=== PATIENT | male | born 1950 | race Caucasian/White ===

== ENCOUNTER 2022-02-14 20:34 | Emergency (ER) | payer MEDICARE, MEDICAID, SELFPAY ==
--- NOTE | ~2022-02-14 | XR_ITS ---
EXAMINATION: XR CHEST CLINICAL INFORMATION: Chest pain COMPARISON: None TECHNIQUE: Frontal view of the chest was obtained. FINDINGS: No focal pulmonary consolidation, pleural effusion or pneumothorax. Rounded opacity projects over the left lower chest suggestive of a hernia. Left basilar atelectasis is also suspected. This limits assessment of the heart, however normal size is most likely the case. No acute osseous abnormality. XR/XR chest 1V IMPRESSION: Suspect some type of hiatal or diaphragmatic hernia on the left. This would be better characterized with CT of the chest.
--- NOTE | 2022-02-14 20:56 | ED_ITS ---
HPI - Chest Pain General Chief Complaint: Chest Pain Stated Complaint: chest pain Time Seen by Provider: 02/14/22 20:52 Source: patient and EMS Mode of arrival: EMS Limitations: no limitations History of Present Illness HPI narrative: 71 year old male came in by for evaluation of chest pain. Chest pain started about 17:00 today started as intermittent and becoming constant, pain is localized to the lower chest and epigastric area, patient described it as indigestion associated with nausea and vomiting x3, no relieving factor, pain is worsening with food ate [place] food before the pain started. No lower extremity swelling or tenderness. Related Data Previous Rx's Medication Instructions Recorded omeprazole magnesium 20 mg 20 mg PO DAILY #14 tabs 02/14/22 tablet,delayed release (Prilosec OTC) Allergies Allergy/AdvReac Type Severity Reaction Status Date / Time No Known Allergies Allergy Verified 02/14/22 20:53 Review of Systems Review of Systems: All other systems are reviewed and are negative Constitutional: Reports as per HPI and Reports no additional constitutional complaints Eyes: Reports as per HPI and Reports no additional eye complaints Reports system reviewed and no additional complaints, except as documented Cardiovascular: Reports as per HPI and Reports no additional cardiovascular complaints Respiratory: Reports as per HPI and Reports no additional respiratory complaints Gastrointestinal: Reports as per HPI and Reports no additional gastrointestinal complaints Genitourinary: Reports no additional female genitourinary complaints Musculoskeletal: Reports no additional musculoskeletal complaints Skin/Breast: Reports system reviewed and no additional complaints, except as docu Psychiatric: Reports no additional psychiatric complaints Endocrine: Reports no additional endocrine complaints Hematologic/Lymphatic: Reports no additional hematologic/lymphatic complaints Allergic/Immunologic: Reports no additional allergic/immunologic complaints Reports system reviewed and no additional complaints, except as documented and Reports Abnormal speech present [facility] Social History Social History Alcohol intake: former Patient Tobacco Use Status: Current everyday Tobacco user Smoked in Last 30 Days: Yes Use of substances other than those prescribed or required for medical reasons: No Advance Directives: No Advance Directives Information Provided: Yes Physical Exam Vital Signs: Vital Signs: Last Vital Signs Temp 98.6 F 02/14/22 23:58 Pulse 90 02/14/22 23:58 Resp 16 02/14/22 23:58 BP 173/100 H 02/14/22 23:58 Pulse Ox 98 02/14/22 23:58 O2 Del Method 02/14/22 23:58 O2 Flow Rate 2 02/14/22 23:58 BMI result Body Mass Index 25.7 Vital signs have been reviewed as appeared to be correct. Blood pressure normal. Heart rate normal. Respiration rate normal. Temperature normal. Oxy gen saturation normal. Appearance: Alert. Oriented X3. No acute distress. Head: Normal external exam. Normocephalic. Atraumatic. No Justice signs noted. No raccoon eyes noted Eyes: PERRLA. EOMI. Conjunctiva and sclera normal. Eyelids normal. ENT: TM's Normal. Pharynx normal. Uvula midline. Moist mucous membranes. No trismus noted. No drooling noted. No muffled voice noted. Neck: Normal inspection. Neck supple. FROM. No adenopathy. Thyroid Normal. No meningeal signs. No neck mass noted. CVS: Normal heart rate and rhythm. Heart sound normal. No murmurs noted. Pulses normal throughout. Respiratory: No respiratory distress. Painless inspiration. Breath sounds n ormal. No wheezes/rales/rhonchi noted. Chest nontender. No accessory muscle usage noted or decreased air movement noted. Abdomen: Soft, mild tenderness in epigastric area no guarding, no rebound ten derness. Bowel sounds normal in all 4 quadrants. No distention noted. No organomegaly noted. No visible injury noted. Back: No CVA tenderness. Full range of motion noted. Skin: Skin warm and dry. Normal skin color. Normal skin turgor. No rashes/lesions/lacerations noted. Extremities: No lower extremity edema. Extremities exhibit normal range of motion. Extremities nontender. Neuro: Oriented X 3. Cranial nerve exam: II-XII are grossly intact No motor deficit. No sensory deficit. Reflexes normal. Course Course Course Narrative: 71-year-old male came in with atypical chest pain, physical exam more consistent with gastritis, patient had normal EKG and unremarkable troponin x2. Will start the patient on PPI and follow-up with GI as an outpatient. MDM - Chest Pain Medical Records Data Attestation: I reviewed the patient's medical records. Lab Data Attestation: I reviewed the patient's lab results. Result diagrams: 02/14/22 21:15 02/14/22 21:15 Labs: Lab Results 02/14/22 02/14/22 02/14/22 Range/Units 21:15 21:15 21:15 WBC 9.9 (4.8-10.8) X10*3/uL RBC 5.00 (4.60-5.80) X10*6/uL Hgb 13.4 L (14.0-18.0) g/dl Hct 41.8 L (42.0-52.0) % MCV 83.6 (80.0-98.0) fL MCH 26.8 L (27.0-33.0) pg MCHC 32.1 (31.0-36.0) g/dl RDW 14.6 (11.0-16.0) % Plt Count 187 (160-400) X10*3/uL MPV 11.2 (9.4-12.4) fL Immature Gran % (Auto) 0.6 H (0.0-0.4) % Neut % (Auto) 74.4 H (45-73) % Lymph % (Auto) 15.9 L (20-40) % [place] % (Auto) 7.7 (2-11) % Eos % (Auto) 0.9 (0-4) % Baso % (Auto) 0.5 (0-2) % Lymph # (Auto) 1.6 (1.2-4.9) X10*3/uL [place] # (Auto) 0.8 (0.1-1.2) X10*3/uL Eos # (Auto) 0.1 (0.0-0.4) X10*3/uL Baso # (Auto) 0.1 (0.0-0.2) X10*3/uL Abs Immat Gran (auto) 0.06 H (0.00-0.03) X10*3/uL Absolute Neuts (auto) 7.3 (2.0-8.3) x10*3/uL Absolute Nucleated RBC 0.000 (0.0-0.012) X10*3/uL Nucleated RBC % (auto) 0.0 (0.0-0.2) /100WBC Sodium 144 (135-145) mmol/L Potassium 4.6 (3.3-5.1) mmol/L Chloride 113 H (96-108) mmol/L Carbon Dioxide 23 (22-29) mmol/L Anion Gap 13 (12-20) BUN 21 H (9-16) mg/dL Creatinine 1.11 (0.5-1.4) mg/dL Estim Creat Clear Calc TNP Estimated GFR > 60 Random Glucose 117 H (60-115) mg/dL Calcium 8.2 L (8.4-10.2) mg/dL Total Bilirubin 1.6 H (0.0-1.0) mg/dL Direct Bilirubin 0.6 H (0.0-0.5) mg/dL AST 21 (5-37) U/L ALT 21 (0-40) U/L Alkaline Phosphatase 43 (39-117) U/L Troponin I High Sens 4.7 (<3.5-35.0) ng/L B-Natriuretic Peptide (<100) pg/mL Total Protein 7.0 (6.5-8.0) g/dL Albumin 4.0 (3.5-5.0) g/dL Lipase 64 (8-78) U/L Urine Color Urine Appearance Urine pH (5.0-8.0) Ur Specific [place] (1.005-1.025) Urine Protein (NEG-TRACE) MG/DL Urine Glucose (UA) (NEG) MG/DL Urine Ketones (NEG) MG/DL Urine Blood (NEG) Urine Nitrite (NEG) Ur Leukocyte Esterase (NEG) COVID-19 (LISA) (Negative) COVID-19 Clin Com 02/14/22 02/14/22 02/14/22 Range/Units 21:15 21:16 23:24 WBC (4.8-10.8) X10*3/uL RBC (4.60-5.80) X10*6/uL Hgb (14.0-18.0) g/dl Hct (42.0-52.0) % MCV (80.0-98.0) fL MCH (27.0-33.0) pg MCHC (31.0-36.0) g/dl RDW (11.0-16.0) % Plt Count (160-400) X10*3/uL MPV (9.4-12.4) fL Immature Gran % (Auto) (0.0-0.4) % Neut % (Auto) (45-73) % Lymph % (Auto) (20-40) % [place] % (Auto) (2-11) % Eos % (Auto) (0-4) % Baso % (Auto) (0-2) % Lymph # (Auto) (1.2-4.9) X10*3/uL [place] # (Auto) (0.1-1.2) X10*3/uL Eos # (Auto) (0.0-0.4) X10*3/uL Baso # (Auto) (0.0-0.2) X10*3/uL Abs Immat Gran (auto) (0.00-0.03) X10*3/uL Absolute Neuts (auto) (2.0-8.3) x10*3/uL Absolute Nucleated RBC (0.0-0.012) X10*3/uL Nucleated RBC % (auto) (0.0-0.2) /100WBC Sodium (135-145) mmol/L Potassium (3.3-5.1) mmol/L Chloride (96-108) mmol/L Carbon Dioxide (22-29) mmol/L Anion Gap (12-20) BUN (9-16) mg/dL Creatinine (0.5-1.4) mg/dL Estim Creat Clear Calc Estimated GFR Random Glucose (60-115) mg/dL Calcium (8.4-10.2) mg/dL Total Bilirubin (0.0-1.0) mg/dL Direct Bilirubin (0.0-0.5) mg/dL AST (5-37) U/L ALT (0-40) U/L Alkaline Phosphatase (39-117) U/L Troponin I High Sens 5.4 (<3.5-35.0) ng/L B-Natriuretic Peptide 24 (<100) pg/mL Total Protein (6.5-8.0) g/dL Albumin (3.5-5.0) g/dL Lipase (8-78) U/L Urine Color Urine Appearance Urine pH (5.0-8.0) Ur Specific [place] (1.005-1.025) Urine Protein (NEG-TRACE) MG/DL Urine Glucose (UA) (NEG) MG/DL Urine Ketones (NEG) MG/DL Urine Blood (NEG) Urine Nitrite (NEG) Ur Leukocyte Esterase (NEG) COVID-19 (LISA) Negative (Negative) COVID-19 Clin Com See Note 02/15/22 Range/Units 00:03 WBC (4.8-10.8) X10*3/uL RBC (4.60-5.80) X10*6/uL Hgb (14.0-18.0) g/dl Hct (42.0-52.0) % MCV (80.0-98.0) fL MCH (27.0-33.0) pg MCHC (31.0-36.0) g/dl RDW (11.0-16.0) % Plt Count (160-400) X10*3/uL MPV (9.4-12.4) fL Immature Gran % (Auto) (0.0-0.4) % Neut % (Auto) (45-73) % Lymph % (Auto) (20-40) % [place] % (Auto) (2-11) % Eos % (Auto) (0-4) % Baso % (Auto) (0-2) % Lymph # (Auto) (1.2-4.9) X10*3/uL [place] # (Auto) (0.1-1.2) X10*3/uL Eos # (Auto) (0.0-0.4) X10*3/uL Baso # (Auto) (0.0-0.2) X10*3/uL Abs Immat Gran (auto) (0.00-0.03) X10*3/uL Absolute Neuts (auto) (2.0-8.3) x10*3/uL Absolute Nucleated RBC (0.0-0.012) X10*3/uL Nucleated RBC % (auto) (0.0-0.2) /100WBC Sodium (135-145) mmol/L Potassium (3.3-5.1) mmol/L Chloride (96-108) mmol/L Carbon Dioxide (22-29) mmol/L Anion Gap (12-20) BUN (9-16) mg/dL Creatinine (0.5-1.4) mg/dL Estim Creat Clear Calc Estimated GFR Random Glucose (60-115) mg/dL Calcium (8.4-10.2) mg/dL Total Bilirubin (0.0-1.0) mg/dL Direct Bilirubin (0.0-0.5) mg/dL AST (5-37) U/L ALT (0-40) U/L Alkaline Phosphatase (39-117) U/L Troponin I High Sens (<3.5-35.0) ng/L B-Natriuretic Peptide (<100) pg/mL Total Protein (6.5-8.0) g/dL Albumin (3.5-5.0) g/dL Lipase (8-78) U/L Urine Color YELLOW Urine Appearance CLEAR Urine pH 8.0 (5.0-8.0) Ur Specific [place] 1.015 (1.005-1.025) Urine Protein NEG (NEG-TRACE) MG/DL Urine Glucose (UA) NEG (NEG) MG/DL Urine Ketones NEG (NEG) MG/DL Urine Blood NEG (NEG) Urine Nitrite NEG (NEG) Ur Leukocyte Esterase NEG (NEG) COVID-19 (LISA) (Negative) COVID-19 Clin Com Imaging Data Chest x-ray: Attestation: I personally reviewed and interpreted this imaging study as follows: Radiologist's impression: Suspect some type of hiatal or diaphragmatic hernia on the left. This would be better characterized with CT of the chest. ? ECG Data ECG #1: Attestation: I personally reviewed and interpreted this ECG as follows: Interpretation: Sinus rhythm at 98 beats per minutes, first-degree AV block, otherwise unremarkable intervals, left axis deviation, RBBB . Discharge Plan Discharge Clinical Impression: Atypical chest pain, Gastritis Patient Disposition: Home, Self-Care Instructions: Gastritis (ED) Prescriptions: New omeprazole magnesium [Prilosec OTC] 20 mg tablet,delayed release (DR/EC) 20 mg PO DAILY Qty: 14 0RF Referrals: Earle Modi MD [Physician] - Physician,None [Primary Care Provider] -
[2022-02-14 21:22] LABS: Basophils Absolute Auto 0.1 X10*3/uL (0.0-0.2); Basophils Percent Auto 0.5 % (0-2); Eosinophils Absolute Auto 0.1 X10*3/uL (0.0-0.4); Eosinophils Percent Auto 0.9 % (0-4); Hematocrit 41.8 % (42.0-52.0); Hemoglobin 13.4 g/dl (14.0-18.0); Imm Gran Abs Auto 0.06 X10*3/uL (0.00-0.03); Imm Gran Pct Auto 0.6 % (0.0-0.4); Lymphocytes Absolute Auto 1.6 X10*3/uL (1.2-4.9); Lymphocytes Percent Auto 15.9 % (20-40); MANUAL DIFF FLAG NO; Mean Corpuscular HGB Conc 32.1 g/dl (31.0-36.0); Mean Corpuscular Hemoglobin 26.8 pg (27.0-33.0); Mean Corpuscular Volume 83.6 fL (80.0-98.0); Mean Platelet Volume 11.2 fL (9.4-12.4); Monocytes Absolute Auto 0.8 X10*3/uL (0.1-1.2); Monocytes Percent Auto 7.7 % (2-11); Neutrophils Absolute Auto 7.3 x10*3/uL (2.0-8.3); Neutrophils Percent Auto 74.4 % (45-73); Platelet Count 187 X10*3/uL (160-400); Red Cell Distribution Width 14.6 % (11.0-16.0); White Blood Count 9.9 X10*3/uL (4.8-10.8)
[2022-02-14 21:40] LABS: COVID-19 Test Negative (Negative)
[2022-02-14 21:42] LABS: Alanine Aminotransferase 21 U/L (0-40); Alkaline Phosphatase 43 U/L (39-117); Anion Gap 13 (12-20); Aspartate Amino Transferase 21 U/L (5-37); Bilirubin Direct 0.6 mg/dL (0.0-0.5); Bilirubin Total 1.6 mg/dL (0.0-1.0); Blood Urea Nitrogen 21 mg/dL (9-16); Calcium 8.2 mg/dL (8.4-10.2); Carbon Dioxide 23 mmol/L (22-29); Chloride 113 mmol/L (96-108); Estimated Glomerular Filt Rate > 60; Glucose Random 117 mg/dL (60-115); Lipase 64 U/L (8-78); Potassium 4.6 mmol/L (3.3-5.1); Sodium 144 mmol/L (135-145)
[2022-02-14 21:44] LABS: B Type Natriuretic Peptide 24 pg/mL (<100); Troponin-I High Sensitivity 4.7 ng/L (<3.5-35.0)
[2022-02-14 22:10] VITALS: PULSE 93; RESP 39; TEMP 36.6; O2SAT 93; BMI 25.7
[2022-02-14 22:16] VITALS: BP 148/100; PULSE 93; RESP 36; TEMP 37.1; O2SAT 94
[2022-02-14] MEDS: 0.9 % Sodium Chloride 1,000 ML 999 ML IV (23:00)
[2022-02-14] MEDS: ondansetron HCL 4 MG/2 ML VIAL IVPUSH (23:01)
[2022-02-14] MEDS: Magnesium Hydrox/Alum Hydrox 30 ML ORAL.SUSP PO (23:01)
[2022-02-14] MEDS: Famotidine/PF 20 MG/2 ML VIAL IVPUSH (23:01)
--- NOTE | 2022-02-14 23:15 | PC.NURSE ---
administered meds to pt per MAR
[2022-02-14 23:49] LABS: Troponin-I High Sensitivity 5.4 ng/L (<3.5-35.0)
[2022-02-14 23:58] VITALS: BP 173/100; PULSE 90; RESP 16; TEMP 37; O2SAT 98
--- NOTE | 2022-02-15 00:04 | ECG_ITS ---
Test Reason : chest pain Blood Pressure : / mmHG Vent. Rate : 085 BPM Atrial Rate : 085 BPM P-R Int : 262 ms QRS Dur : 148 ms QT Int : 404 ms P-R-T Axes : 052 -88 -02 degrees QTc Int : 480 ms Sinus rhythm with 1st degree A-V block Possible Left atrial enlargement Right bundle branch block Left anterior fascicular block Bifascicular block Abnormal ECG No previous ECGs available Referred By: Brittany Alva Electronically Signed By:Dar Rodriguez
[2022-02-15 00:10] LABS: Appearance Urine CLEAR; Color Urine YELLOW; Glucose Urine UA NEG (NEG); Leukocyte Esterase Urine NEG (NEG); Nitrite Urine NEG (NEG); Specific Gravity - Urine 1.015 (1.005-1.025); Urine Blood NEG (NEG); Urine Ketones NEG (NEG); Urine Protein NEG (NEG-TRACE)
== END 2022-02-15 00:34 | disposition home or self-care (01) ==
PROVIDERS: Emergency Provider Emergency Medicine
DX: R07.89 Other chest pain (principal); K29.70 Gastritis, unspecified, without bleeding; Z20.822 Contact with and (suspected) exposure to COVID-19; R10.13 Epigastric pain; F17.200 Nicotine dependence, unspecified, uncomplicated
CPT/HCPCS: 36415; 71045; 80048; 80076; 81003; 83690; 83880; 84484; 85025; 87635; 93005; 96361; 96374; 96375; 99284; 99285; J2405

== ENCOUNTER 2023-01-02 11:09 | Outpatient (REF) | payer MEDICARE, MEDICAID, SELFPAY ==
--- NOTE | ~2023-01-02 | CT_ITS ---
EXAMINATION: CT CHEST AND ABDOMEN WITHOUT CONTRAST CLINICAL INFORMATION: Gastrointestinal hemorrhage. COMPARISON: Chest x-ray 02/14/2022. TECHNIQUE: Multidetector volumetric CT imaging of the chest and abdomen was performed without contrast. Axial MIP volume rendering provided. Sagittal and coronal reformatted images were obtained. DLP: 525 mGy-cm. FINDINGS: CHEST: LUNGS: Mild centrilobular emphysema. No consolidation. Scarring in the left upper lobe. Mild left basilar atelectasis related to the hiatal hernia. MEDIASTINUM: No adenopathy. No pericardial effusion. Ascending aortic aneurysm measuring 4.4 x 4.3 cm. Large hiatal hernia containing almost all of the stomach. CORONARY ARTERIES: No demonstrable calcium. PLEURA: There is no pleural effusion. No pleural mass or thickening. AXILLA: No lymphadenopathy. ABDOMEN AND PELVIS: LIVER, GALLBLADDER, AND BILIARY TREE: No hepatic mass. No biliary ductal dilatation. No cholelithiasis. PANCREAS: No discrete pancreatic mass. No ductal dilatation. SPLEEN: Normal. ADRENAL GLANDS: No adrenal mass. KIDNEYS AND URETERS: Simple cyst in the upper pole right kidney. No follow-up imaging is recommended. No nephrolithiasis or hydronephrosis GASTROINTESTINAL TRACT: Visualized small and large bowel are normal in caliber. No discrete bowel mass is seen. Mild right-sided diverticulosis without evidence of diverticulitis. Large hiatal hernia. ABDOMINAL WALL: No significant hernia is appreciated. LYMPH NODES: No adenopathy. VASCULAR: No aortic aneurysm. OSSEOUS STRUCTURES: Degenerative changes in the spine. No suspicious osseous lesions. CT/CT abdomen wo IV con IMPRESSION: 4.4 cm ascending aortic aneurysm. Large hiatal hernia. Mild colonic diverticulosis.
--- NOTE | ~2023-01-02 | CT_ITS ---
EXAMINATION: CT CHEST AND ABDOMEN WITHOUT CONTRAST CLINICAL INFORMATION: Gastrointestinal hemorrhage. COMPARISON: Chest x-ray 02/14/2022. TECHNIQUE: Multidetector volumetric CT imaging of the chest and abdomen was performed without contrast. Axial MIP volume rendering provided. Sagittal and coronal reformatted images were obtained. DLP: 525 mGy-cm. FINDINGS: CHEST: LUNGS: Mild centrilobular emphysema. No consolidation. Scarring in the left upper lobe. Mild left basilar atelectasis related to the hiatal hernia. MEDIASTINUM: No adenopathy. No pericardial effusion. Ascending aortic aneurysm measuring 4.4 x 4.3 cm. Large hiatal hernia containing almost all of the stomach. CORONARY ARTERIES: No demonstrable calcium. PLEURA: There is no pleural effusion. No pleural mass or thickening. AXILLA: No lymphadenopathy. ABDOMEN AND PELVIS: LIVER, GALLBLADDER, AND BILIARY TREE: No hepatic mass. No biliary ductal dilatation. No cholelithiasis. PANCREAS: No discrete pancreatic mass. No ductal dilatation. SPLEEN: Normal. ADRENAL GLANDS: No adrenal mass. KIDNEYS AND URETERS: Simple cyst in the upper pole right kidney. No follow-up imaging is recommended. No nephrolithiasis or hydronephrosis GASTROINTESTINAL TRACT: Visualized small and large bowel are normal in caliber. No discrete bowel mass is seen. Mild right-sided diverticulosis without evidence of diverticulitis. Large hiatal hernia. ABDOMINAL WALL: No significant hernia is appreciated. LYMPH NODES: No adenopathy. VASCULAR: No aortic aneurysm. OSSEOUS STRUCTURES: Degenerative changes in the spine. No suspicious osseous lesions. CT/CT chest wo IV con IMPRESSION: 4.4 cm ascending aortic aneurysm. Large hiatal hernia. Mild colonic diverticulosis.
== END 2023-01-02 11:10 | disposition home or self-care (01) ==
LOC: HO.CT 11:09
PROVIDERS: PCP Registered Nurse; Visit Provider Registered Nurse
DX: K92.2 Gastrointestinal hemorrhage, unspecified (principal)
CPT/HCPCS: 71250; 74150

== ENCOUNTER → 2023-01-19 13:50 | Outpatient (BNVA) | payer MEDICARE, MEDICAID, SELFPAY | PROVIDERS: PCP Registered Nurse; Visit Provider Internal Medicine | DX: Z12.11 Encounter for screening for malignant neoplasm of colon (principal); K44.9 Diaphragmatic hernia without obstruction or gangrene; K92.0 Hematemesis; R07.9 Chest pain, unspecified; I71.9 Aortic aneurysm of unspecified site, without rupture | CPT/HCPCS: 99202 ==

== ENCOUNTER 2023-01-26 01:52 | Emergency (ER) | payer MEDICARE, MEDICAID, SELFPAY ==
[2023-01-26 02:07] VITALS: BP 133/85; PULSE 85; RESP 27; TEMP 36.6; O2SAT 91; BMI 24.5
--- NOTE | 2023-01-26 02:28 | PC.NURSE ---
pt arrived via ems for vomiting blood since 4 pm, pt also reported mid=sternal chest pain and abd pain, medicated with zofran ivp pre-hospital
--- NOTE | 2023-01-26 02:33 | ED.GENADULT ---
HPI - General Adult General Chief complaint: General Medical Stated complaint: Nausea/Vomiting blood Time Seen by Provider: 01/26/23 02:18 Source: patient Mode of arrival: ambulatory Limitations: no limitations History of Present Illness HPI narrative: 72-year-old male PMH of ETOH use disorder in remission for 20 years, HTN, COPD, AAA, hiatal hernia repair been having chest pain and bloody emesis patient was seen and evaluated by side sawyer patient will be scheduled for upper endoscopy by side sawyer, came in today for epigastric pain and he started to vomit since 16:00 patient noticed that he has also vomiting bright red blood, last bowel movement was yesterday, passing flatus. Related Data Home Medications Medication Instructions Recorded Confirmed cetirizine 10 mg tablet 10 mg PO QAM 01/19/23 lisinopril 10 mg tablet 10 mg PO DAILY 01/19/23 pantoprazole 40 mg tablet,delayed 40 mg PO DAILY 01/19/23 release rosuvastatin 20 mg tablet 20 mg PO BEDTIME 01/19/23 salmeterol 50 mcg/dose blister 1 inh inhalation Q12H 01/19/23 powder for inhalation (Serevent Diskus) umeclidinium 62.5 mcg/actuation 1 inh inhalation DAILY 01/19/23 blister powder for inhalation (Incruse Ellipta) Previous Rx's Medication Instructions Recorded peg 3350-electrolytes 236 240 ml PO Q10M colonoscopy #4,000 01/19/23 gram-22.74 gram-6.74 gram-5.86 mL gram solution (Golytely) Allergies Allergy/AdvReac Type Severity Reaction Status Date / Time No Known Allergies Allergy Verified 01/19/23 13:57 Review of Systems Review of Systems: All other systems are reviewed and are negative Constitutional: Reports as per HPI and Reports no additional constitutional complaints Eyes: Reports as per HPI and Reports no additional eye complaints Reports system reviewed and no additional complaints, except as documented Cardiovascular: Reports as per HPI and Reports no additional cardiovascular complaints Respiratory: Reports as per HPI and Reports no additional respiratory complaints Gastrointestinal: Reports as per HPI and Reports no additional gastrointestinal complaints Genitourinary: Reports no additional female genitourinary complaints Musculoskeletal: Reports no additional musculoskeletal complaints Skin/Breast: Reports system reviewed and no additional complaints, except as docu Psychiatric: Reports no additional psychiatric complaints Endocrine: Reports no additional endocrine complaints Hematologic/Lymphatic: Reports no additional hematologic/lymphatic complaints Allergic/Immunologic: Reports no additional allergic/immunologic complaints Reports system reviewed and no additional complaints, except as documented and Reports Abnormal speech present [facility] Past Medical History Surgical History Hx of hernia repair Social History Social History Alcohol intake: former Patient Tobacco Use Status: Current everyday Tobacco user Smoked in Last 30 Days: No Use of substances other than those prescribed or required for medical reasons: No Advance Directives: No Advance Directives Information Provided: No Physical Exam ED Vital Signs: Vital Signs - 24 hr 01/26/23 02:07 01/26/23 03:52 01/26/23 05:00 Temperature 97.8 F 97.9 F Pulse Rate 85 114 H 96 Respiratory Rate 27 H 16 16 Blood Pressure 133/85 118/70 94/63 Pulse Oximetry 91 L 95 92 Oxygen Delivery Method Room Air Room Air Room Air BMI result Body Mass Index 24.5 Vital signs have been reviewed as appeared to be correct. Blood pressure normal. Heart rate normal. Respiration rate normal. Temperature normal. Oxygen saturation normal. Appearance: Alert. Oriented X3. No acute distress. Head: Normal external exam. Normocephalic. Atraumatic. No Justice signs noted. No raccoon eyes noted Eyes: PERRLA. EOMI. Conjunctiva and sclera normal. Eyelids normal. ENT: TM's Normal. Pharynx normal. Uvula midline. Moist mucous membranes. No trismus noted. No drooling noted. No muffled voice noted. Neck: Normal inspection. Neck supple. FROM. No adenopathy. Thyroid Normal. No meningeal signs. No neck mass noted. CVS: Normal heart rate and rhythm. Heart sound normal. No murmurs noted. Pulses normal throughout. Respiratory: No respiratory distress. Painless inspiration. Breath sounds normal. No wheezes/rales/rhonchi noted. Chest nontender. No accessory muscle usage noted or decreased air movement noted. Abdomen: Soft, mild epigastric tenderness. Bowel sounds normal in all 4 quadrants. No distention noted. No organomegaly noted. No visible injury noted. Back: No CVA tenderness. Full range of motion noted. Skin: Skin warm and dry. Normal skin color. Normal skin turgor. No rashes/lesions/lacerations noted. Extremities: No lower extremity edema. Extremities exhibit normal range of motion. Extremities nontender. Neuro: Oriented X 3. Cranial nerve exam: II-XII are grossly intact No motor deficit. No sensory deficit. Reflexes normal. Course Course Course Narrative: A 72-year-old male came in with vomiting with coffee-ground emesis with abdominal pain, CT is concern of gastric outlet obstruction the case discussed with Dr. Newman who recommended to transfer the patient to another hospital, [facility] is closed for transfer, patient was accepted by [facility] to [facility] ED the case discussed with (surgeon) who accepted the transfer, will arrange for the transfer. Medications Administered Discontinued Medications Generic Name Dose Route Start Last Admin Trade Name Freq PRN Reason Stop Dose Admin Sodium Chloride 1,000 mls @ 999 mls/hr 01/26/23 02:19 01/26/23 04:20 Ns IV 01/26/23 03:19 Infused .Q1H1M ONE Infusion Ondansetron HCl 4 mg 01/26/23 02:18 01/26/23 03:18 Ondansetron Hcl 4 Mg/2 Ml Vial IVPUSH 01/26/23 02:19 4 mg ONCE ONE Administration Pantoprazole Sodium 40 mg 01/26/23 02:18 01/26/23 03:18 Pantoprazole Sodium 40 Mg/10 Ml Vial IVPUSH 01/26/23 02:19 40 mg ONCE ONE Administration Medical Decision Making Differential Diagnosis Differential Diagnoses: The differential diagnosis associated with the presentation includes (Hematemesis, stomach outlet obstruction, gastritis, esophagitis, severe anemia, electrolyte abnormalities.) Admission/Observation Consideration of admission/observation: Escalation of care including admission/observation considered Consult Healthcare Provider Management of the patient was discussed with: Psychiatric Arnp (Dr. Newman) Lab Data MDM Lab Attestation statement: I reviewed the patient's lab results. 01/26/23 02:30 01/26/23 02:30 Labs: Lab Results 01/26/23 01/26/23 01/26/23 Range/Units 02:30 02:30 02:30 WBC 24.4 H (4.8-10.8) X10*3/uL RBC 5.91 H (4.60-5.80) X10*6/uL Hgb 15.6 (14.0-18.0) g/dl Hct 47.7 (42.0-52.0) % MCV 80.7 (80.0-98.0) fL MCH 26.4 L (27.0-33.0) pg MCHC 32.7 (31.0-36.0) g/dl RDW 14.6 (11.0-16.0) % Plt Count 246 D (160-400) X10*3/uL MPV 11.9 (9.4-12.4) fL Immature Gran % (Auto) 0.5 H (0.0-0.4) % Neut % (Auto) 86.8 H (45-73) % Lymph % (Auto) 5.7 L (20-40) % [place] % (Auto) 6.9 (2-11) % Eos % (Auto) 0.0 (0-4) % Baso % (Auto) 0.1 (0-2) % Lymph # (Auto) 1.4 (1.2-4.9) X10*3/uL [place] # (Auto) 1.7 H (0.1-1.2) X10*3/uL Eos # (Auto) 0.0 (0.0-0.4) X10*3/uL Baso # (Auto) 0.0 (0.0-0.2) X10*3/uL Abs Immat Gran (auto) 0.11 H (0.00-0.03) X10*3/uL Absolute Neuts (auto) 21.2 H (2.0-8.3) x10*3/uL Absolute Nucleated RBC 0.000 (0.0-0.012) X10*3/uL Nucleated RBC % (auto) 0.0 (0.0-0.2) /100WBC Smear Tech's Comments VERIFIED Sodium 146 H (135-145) mmol/L Potassium 3.5 D (3.3-5.1) mmol/L Chloride 101 (96-108) mmol/L Carbon Dioxide 26 (22-29) mmol/L Anion Gap 23 H (12-20) BUN 41 H (9-16) mg/dL Creatinine 1.87 H (0.5-1.4) mg/dL Estim Creat Clear Calc 38.0 Estimated GFR 36 Random Glucose 211 H (60-115) mg/dL Calcium 10.2 D (8.4-10.2) mg/dL Total Bilirubin 3.8 H (0.0-1.0) mg/dL Direct Bilirubin 0.3 (0.0-0.5) mg/dL AST 20 (5-37) U/L ALT 23 (0-40) U/L Alkaline Phosphatase 45 (39-117) U/L Troponin I High Sens 52.4 H (<3.5-35.0) ng/L Total Protein 8.3 H (6.5-8.0) g/dL Albumin 4.6 (3.5-5.0) g/dL Lipase 115 H (8-78) U/L Blood Type 01/26/23 Range/Units 04:26 WBC (4.8-10.8) X10*3/uL RBC (4.60-5.80) X10*6/uL Hgb (14.0-18.0) g/dl Hct (42.0-52.0) % MCV (80.0-98.0) fL MCH (27.0-33.0) pg MCHC (31.0-36.0) g/dl RDW (11.0-16.0) % Plt Count (160-400) X10*3/uL MPV (9.4-12.4) fL Immature Gran % (Auto) (0.0-0.4) % Neut % (Auto) (45-73) % Lymph % (Auto) (20-40) % [place] % (Auto) (2-11) % Eos % (Auto) (0-4) % Baso % (Auto) (0-2) % Lymph # (Auto) (1.2-4.9) X10*3/uL [place] # (Auto) (0.1-1.2) X10*3/uL Eos # (Auto) (0.0-0.4) X10*3/uL Baso # (Auto) (0.0-0.2) X10*3/uL Abs Immat Gran (auto) (0.00-0.03) X10*3/uL Absolute Neuts (auto) (2.0-8.3) x10*3/uL Absolute Nucleated RBC (0.0-0.012) X10*3/uL Nucleated RBC % (auto) (0.0-0.2) /100WBC Smear Tech's Comments Sodium (135-145) mmol/L Potassium (3.3-5.1) mmol/L Chloride (96-108) mmol/L Carbon Dioxide (22-29) mmol/L Anion Gap (12-20) BUN (9-16) mg/dL Creatinine (0.5-1.4) mg/dL Estim Creat Clear Calc Estimated GFR Random Glucose (60-115) mg/dL Calcium (8.4-10.2) mg/dL Total Bilirubin (0.0-1.0) mg/dL Direct Bilirubin (0.0-0.5) mg/dL AST (5-37) U/L ALT (0-40) U/L Alkaline Phosphatase (39-117) U/L Troponin I High Sens (<3.5-35.0) ng/L Total Protein (6.5-8.0) g/dL Albumin (3.5-5.0) g/dL Lipase (8-78) U/L Blood Type AB Positive Independent Interpretation I performed an independent interpretation of an: CT Scan (Abdomen pelvis: Distended stomach with concern of stomach outlet obstruction.) Radiology Impression Discussion of test interpretation with radiology: I have reviewed the radiologist's reading. Critical Care Time Critical Care Time Critical Care Time: Yes Total Critical Care Time: 60 Attestation: I spent 60 minutes providing critical care service to the patient, this including time spent at the bedside to evaluate the patient, reassess the patient, monitoring vital signs, review labs, and radiographic studies, counseling the patient/family, discussing the case with consultants, disposition the patient. Discharge Plan Discharge Clinical Impression: Hiatal hernia, Hematemesis, Obstructed, gastric outlet Patient Disposition: [facility] Transfer Details: [facility] in [facility] to the emergency department. Prescriptions: No Action Incruse Ellipta 62.5 mcg/actuation blister with device 1 inh inhalation DAILY pantoprazole 40 mg tablet,delayed release (DR/EC) 40 mg PO DAILY Serevent Diskus 50 mcg/dose blister with device 1 inh inhalation Q12H rosuvastatin 20 mg tablet 20 mg PO BEDTIME cetirizine 10 mg tablet 10 mg PO QAM lisinopril 10 mg tablet 10 mg PO DAILY peg 3350-electrolytes [Golytely] 236-22.74-6.74 -5.86 gram recon soln 240 ml PO Q10M Qty: 4000 0RF Rx Instructions: as per split prep instructions, until fecal effluent is clear
[2023-01-26 02:37] LABS: Basophils Percent Auto 0.1 % (0-2); Hematocrit 47.7 % (42.0-52.0); Hemoglobin 15.6 g/dl (14.0-18.0); Imm Gran Abs Auto 0.11 X10*3/uL (0.00-0.03); Imm Gran Pct Auto 0.5 % (0.0-0.4); Lymphocytes Absolute Auto 1.4 X10*3/uL (1.2-4.9); Lymphocytes Percent Auto 5.7 % (20-40); MANUAL DIFF FLAG SCAN; Mean Corpuscular HGB Conc 32.7 g/dl (31.0-36.0); Mean Corpuscular Hemoglobin 26.4 pg (27.0-33.0); Mean Corpuscular Volume 80.7 fL (80.0-98.0); Mean Platelet Volume 11.9 fL (9.4-12.4); Monocytes Absolute Auto 1.7 X10*3/uL (0.1-1.2); Monocytes Percent Auto 6.9 % (2-11); Neutrophils Absolute Auto 21.2 x10*3/uL (2.0-8.3); Neutrophils Percent Auto 86.8 % (45-73); Platelet Count 246 X10*3/uL (160-400); Red Blood Count 5.91 X10*6/uL (4.60-5.80); Red Cell Distribution Width 14.6 % (11.0-16.0); SCAN SMEAR FLAG 1; White Blood Count 24.4 X10*3/uL (4.8-10.8)
[2023-01-26 02:38] LABS: SLIDE REVIEW VERIFIED
[2023-01-26 02:53] LABS: Alanine Aminotransferase 23 U/L (0-40); Albumin Level 4.6 g/dL (3.5-5.0); Alkaline Phosphatase 45 U/L (39-117); Anion Gap 23 (12-20); Aspartate Amino Transferase 20 U/L (5-37); Bilirubin Direct 0.3 mg/dL (0.0-0.5); Bilirubin Total 3.8 mg/dL (0.0-1.0); Blood Urea Nitrogen 41 mg/dL (9-16); Calcium 10.2 mg/dL (8.4-10.2); Carbon Dioxide 26 mmol/L (22-29); Chloride 101 mmol/L (96-108); Estimated Glomerular Filt Rate 36; Glucose Random 211 mg/dL (60-115); Lipase 115 U/L (8-78); Potassium 3.5 mmol/L (3.3-5.1); Sodium 146 mmol/L (135-145); Total Protein 8.3 g/dL (6.5-8.0)
[2023-01-26 02:54] LABS: Troponin-I High Sensitivity 52.4 ng/L (<3.5-35.0)
[2023-01-26] MEDS: Pantoprazole Sodium 40 MG/10 ML VIAL IVPUSH (03:18)
[2023-01-26] MEDS: 0.9 % Sodium Chloride 1,000 ML 999 ML IV (03:18)
[2023-01-26] MEDS: ondansetron HCL 4 MG/2 ML VIAL IVPUSH (03:18)
[2023-01-26 03:52] VITALS: BP 118/70; PULSE 114; RESP 16; O2SAT 95
--- NOTE | 2023-01-26 04:12 | PC.NURSE ---
NGT tube instilled in pt right nare, tolerated well, brown drainage observed
--- NOTE | 2023-01-26 04:33 | MHC.EDTECH ---
call out to [facility] line at [phone] for possible transfer, per Dr. Mondr[facility] tx declined, limited on accepting certain transfers
--- NOTE | 2023-01-26 04:39 | MHC.EDTECH ---
call out to [facility] for possible transfer at [address] Alva
[2023-01-26 05:00] VITALS: BP 94/63; PULSE 96; RESP 16; TEMP 36.6; O2SAT 92
--- NOTE | 2023-01-26 05:01 | PC.NURSE ---
pt sbp 94. aware, iv fluids infusing
--- NOTE | 2023-01-26 06:50 | MHC.EDTECH ---
call out to [facility] for transport at 05 to [facility] ED, ETA given was [phone]
--- NOTE | 2023-01-26 07:16 | PC.NURSE ---
verbal report given to Nadir CLAIRE at [facility]
[2023-01-26 07:25] VITALS: BP 101/67; PULSE 92; RESP 22; TEMP 36.7; O2SAT 93
--- NOTE | 2023-01-26 08:00 | PC.NURSE ---
PT IS A/O X 4 NO SOB/SALBADOR NOTED LUNGS - DIMINISHED., NGT TO R NARE WHICH IS PATENT AND DRAINING THICK DARK BROWN FLUID, OUTPUT IN SUCTION CANNISTER IS 875 AT THIS TIME.PT AWARE OF PLAN OF CARE FOR TRANSFER TO [facility] VIA AMBULANCE.
[2023-01-26 08:40] VITALS: BP 103/66; PULSE 92; RESP 14; O2SAT 97
--- NOTE | 2023-01-26 08:45 | PC.NURSE ---
ngt output 900ml of dark foul smelling fluid. reporot given to ems
--- NOTE | 2023-01-26 14:41 | PC.NURSE ---
SURESH FROM [facility] CALLED TRYING TO LOCATE PT. INFO GIVEN THAT PT WAS TRANSFERED TO [facility] (ED) THIS AM VIA AMBULANCE.
== END 2023-01-26 08:55 | disposition short-term general hospital (02) ==
PROVIDERS: Emergency Provider Emergency Medicine; PCP Registered Nurse
DX: K44.9 Diaphragmatic hernia without obstruction or gangrene (principal); K92.0 Hematemesis; K31.1 Adult hypertrophic pyloric stenosis; R10.13 Epigastric pain; F17.200 Nicotine dependence, unspecified, uncomplicated; Z79.899 Other long term (current) drug therapy
CPT/HCPCS: 36415; 71045; 74176; 80053; 82248; 83690; 84484; 85025; 86850; 86900; 86901; 93005; 96361; 96374; 96375; 99285; J2405

== ENCOUNTER 2023-03-27 15:21 | Outpatient (REF) | payer MEDICARE, MEDICAID, SELFPAY ==
--- NOTE | 2023-03-27 | PFT_ITS ---
FLOWS: 1. FEV1 83% of predicted at 2.80 L. 2. FVC 83% of predicted at 3.81 L. 3. FEV1 to FVC ratio of 0.71. 4. No bronchodilator response. LUNG VOLUMES: Patient was not able to lung volume maneuvers appropriately. Diffusion capacity is moderately decreased, diffusion capacity had just been mildly decreased after correction for alveolar ventilation. IMPRESSION: No obstructive or restrictive ventilatory defect. Decreased diffusion capacity suggests emphysema. MD ALLA Snow/MODL / [id number]
== END 2023-03-27 15:22 | disposition home or self-care (01) ==
LOC: HO.RESP 15:21
PROVIDERS: PCP Registered Nurse; Visit Provider Registered Nurse
DX: J43.9 Emphysema, unspecified (principal)
CPT/HCPCS: 94010; 94727; 94729

== ENCOUNTER → 2023-03-27 15:30 | Outpatient (BNV) | payer MEDICARE, MEDICAID, SELFPAY | PROVIDERS: PCP Registered Nurse; Visit Provider Internal Medicine Pulmonary Disease | DX: J44.9 Chronic obstructive pulmonary disease, unspecified (principal) | CPT/HCPCS: 94060; 94727; 94729 ==

== ENCOUNTER 2023-05-06 08:42 | Outpatient (AMB) | payer MEDICARE, MEDICAID, SELFPAY ==
--- NOTE | 2023-05-06 08:52 | MHC.OFFVIS ---
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 He apparently had CT scans done for evaluation of hiatal hernia and that showed ascending aortic aneurysm size 4.4 cm. Patient himself does not have any known cardiac problems. No history of any coronary artery disease or myocardial infarction or cardiomyopathy. No chest pains or other symptoms from cardiac. [facility] Medical History (Updated 05/06/23 @ 09:50 by Phan Alcantara MD) Atherosclerotic cardiovascular disease HLD (hyperlipidemia) HTN (hypertension) COPD (chronic obstructive pulmonary disease) Aortic aneurysm Hiatal hernia Surgical History Hx of hernia repair Family History Father No problems noted. Mother No problems noted. Social History Alcohol intake: former Patient Tobacco Use Status: Current everyday Tobacco user Review of Systems Const Denies chills, Denies daytime sleepiness, Denies fatigue, Denies fever(s), Denies frequent falls, Denies night sweats, Denies snoring, Denies weakness, Denies weight gain and Denies weight loss Eyes Denies loss of vision ENT Denies dizziness and Denies hearing loss Card Denies chest pain, Denies chest pain with activity, Denies syncope, Denies rapid heart rate, Denies edema, Denies claudication, Denies leg edema, Denies lightheadedness, Denies palpitations, Denies dyspnea, Denies dyspnea on exertion and Denies orthopnea Resp Denies cough, Denies excessive phlegm production, Denies dyspnea, Denies dyspnea on exertion, Denies snoring and Denies wheezing GI Denies abdominal pain, Denies hematochezia, Denies change in bowel habits, Denies change in stool character, Denies heartburn, Denies nausea and Denies vomiting Denies hematuria, Denies dysuria and Denies urinary frequency Musc Denies arthralgias, Denies muscle weakness, Denies numbness and Denies tingling Skin/Breast Denies nail changes and Denies rash Neuro Denies Abnormal speech present, Denies dizziness, Denies syncope, Denies frequent falls, Denies loss of vision, Denies memory loss, Denies numbness, Denies tingling and Denies weakness Psych Denies depression and Denies memory loss Endo Denies fatigue and Denies palpitations Aller/Immun Denies wheezing Physical Exam Vital Signs: Last Vital Signs Pulse 60 05/06/23 08:53 BP 90/66 05/06/23 08:53 BMI result Body Mass Index 23.1 Const General: comfortable and no acute distress Orientation/consciousness: patient oriented x3 HEENT Other: Unremarkable Head: Yes normal to inspection Neck Neck: Yes normal visual inspection Chest Chest palpation & inspection: normal inspection of the chest Resp Auscultation: clear to auscultation bilaterally Cardio Palpation: normal PMI Heart sounds: S1 normal heart sound present, S2 normal heart sound present, no gallops, no murmurs and no rubs GI Palpation (GI): Soft to palpation Back/Spine/Pelvis Other: unremarkable Skin General skin exam: no rashes or lesions noted Neuro General: patient oriented x3 Speech: No Abnormal speech present Extrem General: Yes normal to inspection Psych Mental Status: mental status grossly normal Assessment & Plan Assessment & Plan (1) Ascending aortic aneurysm: Code(s): I71.21 - Aneurysm of the ascending aorta, without rupture Qualifiers: Presence of rupture: without rupture Qualified Code(s): I71.21 - Aneurysm of the ascending aorta, without rupture (2) Atherosclerotic cardiovascular disease: Code(s): I25.10 - Atherosclerotic heart disease of [place] coronary artery without angina pectoris Plan Chest CT scan reported to have 4.4 cm ascending aortic aneurysm. In the CT scan of the abdomen, described to have atherosclerotic calcification along the aorta. Pathophysiology of ascending aortic aneurysm discussed with patient. Advised to avoid any strenuous physical activity. Otherwise, this will need periodic monitoring. Will get echocardiogram for cardiac function assessment as well as to look for any aortic valve pathology like bicuspid valve. As he has multiple risk factors including history of smoking, hypertension, dyslipidemia, will also screen for coronary disease with stress test. Follow-up after testing. Orders: Orders NM cardiolite stress test Today I71.21 - Aneurysm of the ascending aorta, without rupture, R07.2 - Precordial pain CA stress test Today I71.21 - Aneurysm of the ascending aorta, without rupture, R07.2 - Precordial pain CA echo transthoracic complete Today I25.10 - Atherosclerotic heart disease of [place] coronary artery without angina pectoris, I71.21 - Aneurysm of the ascending aorta, without rupture Coding Level of Care Code New Pt Level 4 (29346) Diagnoses Aneurysm of ascending aorta without rupture I71.21 Presence of rupture: without rupture Atherosclerotic cardiovascular disease I25.10
[2023-05-06 08:53] VITALS: BP 90/66; PULSE 60; BMI 23.1
== END 2023-05-06 09:16 | disposition home or self-care (01) ==
PROVIDERS: PCP Registered Nurse; Visit Provider Internal Medicine
DX: I71.21 Aneurysm of the ascending aorta, without rupture (principal); I25.10 Atherosclerotic heart disease of native coronary artery without angina pectoris
CPT/HCPCS: 99204

== ENCOUNTER → 2023-05-06 08:42 | Outpatient (BNVA) | payer MEDICARE, MEDICAID, SELFPAY | PROVIDERS: PCP Registered Nurse; Visit Provider Internal Medicine ==

== ENCOUNTER → 2023-06-22 08:03 | Outpatient (REF) | payer MEDICARE, MEDICAID, SELFPAY ==
--- NOTE | 2023-06-22 08:06 | CA_ITS ---
Acquisition Time: 2023-06-22 09:02:54 Total Exercise Time: 00:05:01 Test Indications: PRECORDIAL PAIN Medications: LISINOPRIL ROSUVASTATIN Protocol: BRIAN Max HR: 139 BPM 93% of Pred: 148 BPM Max BP: 160/082 mmHG Max Work Load: 4.6 METS Exercise stress test exercise 5 min 1 sec of Brian protocol stage 1 held achieving 91% MPHR, with mild to moderate SOB, no chest discomfort, isolated PVCs and 1 short ventricular run, with normotensive response to exercise, without EKG changes. Nuclear images pending. Test reviewed with Dr. Cox Referred By: Phan Alcantara Overread By: Maira Cisneros
--- NOTE | 2023-06-22 08:06 | CA_ITS ---
Transthoracic Echocardiogram Patient (Last, First, Middle): Donaldo Jean-Baptiste C Gender: Male Date of : 1950 Age: 72 Procedure Date: 06/22/2023 Procedure Type: Transthoracic Echocardiogram Location: OP Height: 180.34 cm Weight: 75.3 kg BSA: 1.95 m2 Heart Rate: 53 bpm BP: 140 / 80 mmHg Cell Changer: LUCRETIA Rojas MD: Phan Alcantara MD Detailer Furniture: Zander Cox MD Symptoms: I25.10 - Atherosclerotic heart disease of [place] coronary artery without... Study Quality: Adequate ECG Rhythm: Bradycardia Conclusions: - 1. Normal LV ejection fraction 65-70% with grade 1 diastolic dysfunction 2. Mild aortic regurgitation as determine by quantitative analysis with regurgitant volume of 19 mL 3. Moderately dilated ascending aorta at 4.6 cm 4. Normal RV systolic pressure 5. No pericardial effusion Findings Left Ventricle Normal left ventricular size, thickness, and systolic function. The visually estimated ejection fraction is between 65-70%. Spectral Doppler is indicative of an impaired relaxation filling pattern. E/E prime ratio is <8, consistent with normal filling pressures. Right Ventricle Normal right ventricular cavity size and systolic function. Atria The left atrium is likely dilated. There is no evidence of interatrial shunt. The right atrium is normal in size. Aortic Valve Normal aortic valve structure and function. There is mild aortic valve stenosis. color Doppler is suggestive of eccentric aortic regurgitation which visually appears to be [id number]. Quantitative analysis confirms presence of mild aortic regurgitation with regurgitant volume of 19 mL with calculated effective regurgitation orifice area of 0.1 centimeter sq by continuity equation. Mitral Valve Normal mitral valve structure and function. There is trace mitral valve regurgitation. There is no mitral valve stenosis. Pulmonic Valve The pulmonic valve is likely normal. There is trace pulmonic valve regurgitation. Tricuspid Valve Normal tricuspid valve structure. There is trace tricuspid valve regurgitation. The right ventricular systolic pressure is normal. The right ventricular systolic pressure is 18 mmHg. Normal right atrial pressure. There is no evidence of pulmonary hypertension. Great Vessels The pulmonary artery was not well visualized. There is moderate dilatation of the ascending aorta measuring 4.60 cm. Venous The inferior vena cava is normal in size and collapses greater than 50% with inspiration. Pericardium/Pleural There is no evidence of pericardial effusion. Prior Study Comparison No prior study available for comparison. Consider chest CTA for evaluation of ascending aorta Measurements 2D Linear Measurements IVSd: 1.13 0.6-0.9/0.6-1.0 cm LVIDd: 5.02 3.9-5.3/4.2-5.9 cm LVIDd Index: 2.57 2.4-3.2/2.2-3.1 cm/m2 LVIDs: 3.33 2.0-3.6 cm LVPWd: 1.05 0.7-1.1 cm LA Diam: 3.90 2.7-3.8/3.0-4.0 cm LAIDs Index: 2.00 1.5-2.3 cm/m2 LV Mass: 256.61 67-162/88-224 g LV Mass Index: 131.60 43-95/49-115 g/m2 LVOT Diam: 2.20 3.0+(-)1.3 cm 2D Systolic Function EF 4C: 60.30 >55% EF 2C: 73.30 >55% EF BiP: 66.20 >55% Mitral Valve MV Pk E: 0.63 MV PK A: 0.70 MV Decel Time: 223.00 E/A: 0.90 E'Lateral: 7.40 E'Medial: 4.57 E/E' Med: 13.70 E/E' Lat: 8.50 PHT: 65.00 MVA PHT: 3.38 Decel [place]: 2.80 Aortic Valve AoV Pk Jakub: 1.47 AoV Mn Jakub: 1.10 AoV VTI: 0.40 AoV Pk Grad: 9.00 Aov Mn Grad: 5.00 PINEDA Cont.VTI: 3.32 AI Pk Jakub: 4.88 AI VTI: 3.00 AI [place]: 2.22 AI Alias Jakub: 0.39 AI RV - PISA: 36.00 ERO - PISA: 12.00 LVOT LVOT Pk Jakub: 1.57 LVOT Mn Jakub: 0.97 LVOT VTI: 0.35 LVOT Pk Grad: 10.00 LVOT Mn Grad: 4.00 LVOT Diam: 2.20 LVOT Area: 3.80 Diastolic Function MV Pk E: 0.63 MV Pk A: 0.70 E/A: 0.90 E'Medial: 4.57 E/E' Med: 13.70 E' Laterial: 7.40 E/E' Lat: 8.50 Right Ventricle TAPSE (mm): 23.00 TVS' Jakub: 12.70 Tricuspid Valve TR Pk Jakub: 1.96 TR Pk Grad: 15.00 RA Press: 3.00 RVSP: 18.00 Great Vessels Aorta Sinus of Valsalva: 4.30 2.0-3.5 cm Ao Asc: 4.60 2.1-3.4 cm Pulmonary Valve PV Pk Jakub: 0.85 Peak PV Grad: 3.00 Updated in Other Vendor System with Status of Final Zander Cox MD electronically signed on 06/22/2023 4:43:10 PM with status of Final
== END ==
LOC: HO.CARD 08:03
PROVIDERS: PCP Registered Nurse; Visit Provider Internal Medicine
DX: R07.2 Precordial pain (principal); I25.10 Atherosclerotic heart disease of native coronary artery without angina pectoris; I71.21 Aneurysm of the ascending aorta, without rupture
CPT/HCPCS: 93017; 93306

== ENCOUNTER → 2023-06-22 08:06 | Outpatient (BNV) | payer MEDICARE, MEDICAID, SELFPAY | PROVIDERS: PCP Registered Nurse; Visit Provider Nurse Practitioner | DX: I25.10 Atherosclerotic heart disease of native coronary artery without angina pectoris (principal) | CPT/HCPCS: 93016; 93018; 93306 ==

== ENCOUNTER 2023-06-30 14:26 | Outpatient (AMB) | payer MEDICARE, MEDICAID, SELFPAY ==
[2023-06-30 14:29] VITALS: BP 100/72; PULSE 64; BMI 23.7
--- NOTE | 2023-06-30 14:29 | MHC.OFFVIS ---
Intake Vital Signs 06/30/23 14:29 Height 5 ft 11 in Weight 169 lb 12.095 oz BMI 23.7 BP 100/72 Blood Pressure Location Lt brachial Position Sitting Pulse 64 Pulse Source Pulse Oximeter Intake Visit Reasons: f/up echo/ mibi/ HS Swim Instructor Required: No Allergies No Known Allergies Allergy (Verified 06/30/23 14:30) Medication List - Last Reconciled 06/30/23 by Lianne Hanna, BETY-C cetirizine 10 mg PO QAM lisinopril 10 mg PO DAILY pantoprazole 40 mg PO DAILY rosuvastatin 20 mg PO BEDTIME salmeterol (Serevent Diskus) 1 inh inhalation Q12H umeclidinium 62.5 mcg/actuation (Incruse Ellipta) 1 inh inhalation DAILY HPI f/up echo/ mibi/ HS HPI Details Donaldo is a 72-year-old male with past medical history of hypertension and hyperlipidemia who underwent a CT scan of the chest 01/02/2023 showing dilated ascending aorta as well as large hiatal hernia. He was then seen in Cardiology consult and underwent an echocardiogram and stress test. He now presents for follow-up. Today he reports that he had surgery on his hiatal hernia and is doing generally well. He has experienced some nose bleeds which he is concerned about. He is not on any anticoagulants at present. He denies any chest discomfort at rest or with activity. No shortness of breath, palpitations, presyncope, syncope, PND, orthopnea or edema. He has been taking his meds as directed. He had the stress portion of his nuclear stress test but wanted to check with me to see if he needed the stress pictures as well. Stress test has not been completed as of yet. FOR[facility]LY [facility] Medical History Atherosclerotic cardiovascular disease HLD (hyperlipidemia) HTN (hypertension) COPD (chronic obstructive pulmonary disease) Aortic aneurysm Hiatal hernia Surgical History Hx of hernia repair Family History Father No problems noted. Mother No problems noted. Social History Alcohol intake: former Patient Tobacco Use Status: Current everyday Tobacco user Review of Systems Const All systems reviewed & are unremarkable except as noted in HPI and below ENT Details: nose bleeds Denies dizziness Card Denies chest pain, Denies chest pain at rest, Denies chest pain with activity, Denies rapid heart rate, Denies pedal edema, Denies edema, Denies leg edema, Denies lightheadedness, Denies palpitations, Denies dyspnea, Denies dyspnea on exertion and Denies orthopnea Resp Denies cough, Denies dyspnea and Denies dyspnea on exertion GI Denies hematochezia and Denies change in stool character Musc Denies abnormal gait, Denies limited range of motion, Denies muscle cramps, Denies muscle weakness, Denies numbness, Denies radiating pain into limb, Denies stiffness and Denies tingling Neuro Denies abnormal gait, Denies dizziness, Denies numbness and Denies tingling Endo Denies palpitations Physical Exam Vital Signs: Last Vital Signs Pulse 64 06/30/23 14:29 BP 100/72 06/30/23 14:29 BMI result Body Mass Index 23.7 Const General: cooperative, healthy appearing, comfortable and no acute distress Orientation/consciousness: patient oriented x3 Neck Neck: Yes normal visual inspection Resp Effort & Inspection: normal respiratory effort Auscultation: clear to auscultation bilaterally, no crackles, no rales, no rhonchi and no wheezes Cardio Jugular venous distension: no JVD Rate: regular rate Rhythm: regular rhythm Heart sounds: S1 normal heart sound present, S2 normal heart sound present, no murmurs and no rubs Neuro General: patient oriented x3 Extrem General: Yes normal to inspection Psych Appearance: grossly normal Mental Status: mental status grossly normal Speech and movement: Normal speech and movement present Assessment & Plan Assessment & Plan (1) Ascending aortic aneurysm: Code(s): I71.21 - Aneurysm of the ascending aorta, without rupture Qualifiers: Presence of rupture: without rupture Qualified Code(s): I71.21 - Aneurysm of the ascending aorta, without rupture Plan: Six CT scan of the chest done 01/02/2023 shows dilated ascending aorta 4.3 x 4.4 cm. He has a history of hypertension which is currently well controlled on lisinopril. Echocardiogram done 06/22/2023 showing EF 65-70%, grade 1 diastolic dysfunction, mild AR, ascending aorta 4.6 cm. Spent time reviewing this with him in detail. Instructed on avoidance of heavy lifting and the importance of good blood pressure control. No med changes made at this time. Will plan for repeat echocardiogram in 6 months to assess rate of change on his aorta. Cardiology follow-up 6 months, sooner if needed (2) Atherosclerotic cardiovascular disease: Code(s): I25.10 - Atherosclerotic heart disease of [place] coronary artery without angina pectoris Plan: CT scan of the chest also showed some atherosclerotic calcifications along the aorta. He has no reports of anginal sounding symptoms. He has no prior known history of heart disease. He has risk factors of hypertension and hyperlipidemia. An exercise nuclear stress test was done on 06/22/2023 with exercise portion showing exercise 5 minutes with shortness of breath, no EKG changes. The nuclear scan portion of test is still pending. Plan to call him with results. He is currently experiencing issues with nose bleeds. Will hold off on addition of aspirin at this time. He is on rosuvastatin and ideal LDL goal should be less than 70. (3) Hiatal hernia: Code(s): K44.9 - Diaphragmatic hernia without obstruction or gangrene Plan: Recent repair completed and he states he is doing well Orders: Orders CA echo transthoracic complete 12/28/23 I71.21 - Aneurysm of the ascending aorta, without rupture Patient Instructions: Time spent on chart review, documentation, interview and assessment Coding Level of Care Code Est Pt Level 4 (11545) Diagnoses Aneurysm of ascending aorta without rupture I71.21 Presence of rupture: without rupture Atherosclerotic cardiovascular disease I25.10 Hiatal hernia K44.9 Time Spent (min) 28
== END 2023-06-30 14:58 | disposition home or self-care (01) ==
PROVIDERS: PCP Registered Nurse; Visit Provider Nurse Practitioner Family
DX: I71.21 Aneurysm of the ascending aorta, without rupture (principal); I25.10 Atherosclerotic heart disease of native coronary artery without angina pectoris; K44.9 Diaphragmatic hernia without obstruction or gangrene
CPT/HCPCS: 99214

== ENCOUNTER → 2023-06-30 14:26 | Outpatient (BNVA) | payer MEDICARE, MEDICAID, SELFPAY | PROVIDERS: PCP Registered Nurse; Visit Provider Nurse Practitioner Family | DX: I25.10 Atherosclerotic heart disease of native coronary artery without angina pectoris (principal); I10 Essential (primary) hypertension; I71.21 Aneurysm of the ascending aorta, without rupture; K44.9 Diaphragmatic hernia without obstruction or gangrene | CPT/HCPCS: 99212 ==

== ENCOUNTER 2023-09-24 13:39 | Outpatient (REF) | payer MEDICARE, MEDICAID, SELFPAY | END 2023-09-24 13:40 | disposition home or self-care (01) | LOC: HO.SH 13:39 | PROVIDERS: Visit Provider Registered Nurse | DX: Z01.118 Encounter for examination of ears and hearing with other abnormal findings (principal); H91.93 Unspecified hearing loss, bilateral | CPT/HCPCS: 92567 ==

== ENCOUNTER 2023-09-30 15:47 | Outpatient (REF) | payer MEDICARE, MEDICAID, SELFPAY ==
--- NOTE | 2023-10-01 08:04 | MHC.AU.HA1 ---
Hearing Aid Evaluation Date of Visit: 09/30/23 Historical Information: Description of Hearing: Moderate to severe sensorineural hearing loss. Summary: Here for evaluation. Reviewed amplification styles and options. Selected RITE rechargeable, custom earmold recommended. Has an Android phone that he would like to be able to use the hearing aids with. Impressions taken without incidence Au. Hearing Aid Prescription: Based on the individual?s shared listening needs, communication environments, dexterity, desire for connectivity, and personal preferences, the following prescription for amplification has been made: Right ear: Make, Model, Color: Phonak Audeo L70 R, Graphite Sykes Battery Size: Rechargeable Tariff Counsel/Slim Tube: 2M Type of Earmold/Dome/CShell/SlimTip: silicone half skeleton Left ear: Left ear prescription to be same as Right Hearing Aid above: Make, Model, Color: Phonak L70 R, Graphite Yskes Battery Size: Rechargeable Tariff Counsel/Slim Tube: 2M Type of Earmold/Dome/CShell/SlimTip: silicone half skeleton Plan of Care: Patient wishes to purchase hearing aids as prescribed Action Taken/Action Needed: Earmold Impressions Taken Medical Clearance to be requested from PCP/ENT Hearing Instrument Fitting to be scheduled when materials arrive Primary Diagnosis: H90.3 Bilateral Sensorineural Hearing Loss Signature: Provider: Krissy Encarnacion, [facility]
== END 2023-09-30 15:48 | disposition home or self-care (01) ==
LOC: HO.SH 15:47
PROVIDERS: Visit Provider Registered Nurse
DX: Z01.118 Encounter for examination of ears and hearing with other abnormal findings (principal); Z46.1 Encounter for fitting and adjustment of hearing aid; H90.3 Sensorineural hearing loss, bilateral
CPT/HCPCS: 92557; 92567; 92591; V5275

== ENCOUNTER 2023-10-19 15:04 | Outpatient (REF) | payer MEDICARE, MEDICAID, SELFPAY ==
--- NOTE | 2023-10-19 16:11 | MHC.AU.HA2 ---
Hearing Instrument Fitting- Adult- Binaural Date of Visit: 10/19/23 Hearing Instruments Dispensed: Right Ear: Make, Model, Color, Serial Number: Phonak Audeo L70 R, Graphite Sykes [id number] [employer] Repair Warranty: 11/07/2026 [employer] Loss and Damage Warranty: 11/07/2026 [facility] Service Plan: 10/18/24 Battery Size: Rechargeable Traffic Technician/Slim Tube: 2M Earmold/Dome/CShell/SlimTip: silicone half skeleton [id number] Warranty 01/09/2024 Type of Wax Guard: Cerustop Left Ear: Make, Model, Color, Serial Number: Phonak L70 R, Graphite Sykes [id number] [employer] Repair Warranty: 11/07/2026 [employer] Loss and Damage Warranty: 11/07/2026 [facility] Service Plan: 10/18/24 Battery Size: Rechargeable Traffic Technician/Slim Tube: 2M Earmold/Dome/CShell/SlimTip: silicone half skeleton [id number] Warranty 01/09/2024 Type of Wax Guard: Cerustop Accessories/Assistive Technology: Phonak gin clerk ease [id number] Summary of Fitting: Fit with and oriented to binaural Phonak Audeo L 70 R HAs with silicone skeleton earmolds. Verified to DSL5 Adult targets. Reduced gain to help with adjustment to amplification with automatic increase to %100 set. Counseled on adjustment to amplification. Good subjective comfort and benefit reported. VC currently deactivated, advised can activate at follow up if desired. Not paired with phone today, advised to bring with him to follow up if he would like to set that up. Reviewed charging and maintenance. Did not provide wax guards. The receivers are rather recessed in the earmolds. Demonstrated cleaning mold/ using tool to remove wax from opening. Practiced insertion and removal. Follow up in two weeks. Recommendations: Recommendations: Hearing instrument care and maintenance were discussed and practiced. A hearing instrument follow-up was scheduled. Diagnosis Code(s): Primary Diagnosis: H90.3 Bilateral Sensorineural Hearing Loss Signature: Provider: Krissy Encarnacion, [facility]
== END 2023-10-19 15:05 | disposition home or self-care (01) ==
LOC: HO.HAP 15:04
PROVIDERS: PCP General Practice; Visit Provider General Practice
DX: Z46.1 Encounter for fitting and adjustment of hearing aid (principal); H90.3 Sensorineural hearing loss, bilateral
CPT/HCPCS: V5011; V5020; V5160; V5261; V5264

== ENCOUNTER 2023-11-03 14:52 | Outpatient (REF) | payer MEDICARE, MEDICAID, SELFPAY ==
--- NOTE | 2023-11-03 16:49 | MHC.AU.HA3 ---
Hearing Instrument Follow-Up- Binaural Date of Visit: 11/03/23 Right Ear: Brayden, Model, Color, Serial Number: Alek Beard L70 R, Graphite Sykes [id number] Nuclear Auxiliary Operator Repair Warranty: 11/07/2026 Nuclear Auxiliary Operator Loss and Damage Warranty: 11/07/2026 [facility] Service Plan: 10/18/24 Battery Size: Rechargeable Fingernail Sculptor/Slim Tube: 2M Earmold/Dome/CShell/SlimTip:silicone half skeleton [id number] Warranty 01/09/2024 Type of Wax Guard: Cerustop Dispensed By: [facility] Date of Fittin10/19/23 Left Ear: Brayden, Model, Color, Serial Number: Alek Emmanuel70 R, Graphite Sykes [id number] Nuclear Auxiliary Operator Repair Warranty: 11/07/2026 Nuclear Auxiliary Operator Loss and Damage Warranty: 11/07/2026 [facility] Service Plan: 10/18/24 Battery Size: Rechargeable Fingernail Sculptor/Slim Tube: 2M Earmold/Dome/CShell/SlimTip: silicone half skeleton [id number] Warranty 01/09/2024 Type of Wax Guard: Cerustop Dispensed By: [facility] Date of Fittin10/19/23 Follow-Up Summary: Reports good satisfaction with the new hearing aids. Reports he wears them all day and has been getting more used to hearing all that he had been missing. Connected with his phone today and practiced streaming a call. Reviewed maintenance procedures. Recommendations: Recommendations: Hearing instrument follow-up or maintenance as needed. Diagnosis Code(s): Primary Diagnosis: H90.3 Bilateral Sensorineural Hearing Loss Signature: Provider: Krissy Encarnacion, [facility]
== END 2023-11-03 14:53 | disposition home or self-care (01) ==
LOC: HO.HAP 14:52
PROVIDERS: Visit Provider General Practice
DX: Z13.89 Encounter for screening for other disorder (principal)

== ENCOUNTER 2024-01-05 14:15 | Outpatient (AMB) | payer MEDICARE, MEDICAID, SELFPAY ==
[2024-01-05 14:33] VITALS: BP 116/70; PULSE 71; BMI 24.2
--- NOTE | 2024-01-05 14:33 | A.OFFVIS_ITS ---
Vital Signs 01/05/24 14:33 Height 5 ft 11 in Weight 173 lb 4.533 oz BMI 24.2 BP 116/70 Blood Pressure Location Lt brachial Position Sitting Pulse 71 Pulse Source Monitor Intake Visit Reasons: 6 mth f/up Sewer Tapper Required: No Allergies No Known Allergies Allergy (Verified 01/05/24 14:35) Medication List - Last Reconciled 01/05/24 by Lianne Hanna, SENIOR [employer] ADMINISTRATOR-C cetirizine 10 mg PO QAM lisinopril 10 mg PO DAILY pantoprazole 40 mg PO DAILY rosuvastatin 20 mg PO BEDTIME salmeterol (Serevent Diskus) 1 inh inhalation Q12H umeclidinium 62.5 mcg/actuation (Incruse Ellipta) 1 inh inhalation DAILY HPI HPI 6 mth f/up: Details: Donaldo is a 73-year-old male with past medical history of hypertension and hyperlipidemia who underwent a CT scan of the chest 01/02/2023 showing dilated ascending aorta as well as large hiatal hernia. He was referred to Cardiology and we have been following him along. He has also undergone repair of his hiatal hernia. Today he reports that he has been feeling well overall. He says he used to have a lot of abdominal discomfort but that has since resolved. Has no chest discomfort at rest or with activity. No shortness of breath, palpitations, presyncope, syncope, PND, orthopnea or edema. He has been taking his meds as directed. He had the stress portion of his nuclear stress test but did not complete the rest portion. He tells me he is very fearful of having a lot of radiation. He does not want any tests right now that have radiation involved. ON LICENSE OF [facility] Medical History Atherosclerotic cardiovascular disease HLD (hyperlipidemia) HTN (hypertension) COPD (chronic obstructive pulmonary disease) Aortic aneurysm Hiatal hernia Surgical History Hx of hernia repair Family History Father No problems noted. Mother No problems noted. Social History Alcohol intake: former Patient Tobacco Use Status: Current everyday Tobacco user Review of Systems Const All systems reviewed & are unremarkable except as noted in HPI and below Card Details: indigestion if he eats fast Denies chest pain, Denies chest pain at rest, Denies chest pain with activity, Denies rapid heart rate, Denies leg edema, Denies palpitations, Denies dyspnea, Denies dyspnea on exertion and Denies orthopnea Resp Denies dyspnea and Denies dyspnea on exertion Musc Denies no additional complaints Neuro Denies no additional complaints Endo Denies palpitations Physical Exam Vital Signs: Last Vital Signs Pulse 71 01/05/24 14:33 BP 116/70 01/05/24 14:33 BMI result Body Mass Index 24.2 Const General: cooperative, healthy appearing, comfortable and no acute distress Orientation/consciousness: patient oriented x3 Neck Neck: Yes normal visual inspection and Yes no JVD Resp Effort & Inspection: normal respiratory effort Auscultation: clear to auscultation bilaterally, no crackles, no rales, no rhonchi and no wheezes Cardio Jugular venous distension: no JVD Rate: regular rate Rhythm: regular rhythm Heart sounds: S1 normal heart sound present, S2 normal heart sound present, no murmurs and no rubs Neuro General: patient oriented x3 Extrem General: Yes normal to inspection and No no pedal edema Psych Appearance: grossly normal Mental Status: mental status grossly normal Speech and movement: Normal speech and movement present Office Procedures EKG Details: Today read by me he, sinus rhythm with first-degree AV block, right bundle branch block, possible lateral infarct, age undetermined, rate 71, QTC 454 milliseconds [id number], Complete Assessment & Plan Assessment & Plan (1) Ascending aortic aneurysm: Code(s): I71.21 - Aneurysm of the ascending aorta, without rupture Category: Medical Qualifiers: Presence of rupture: without rupture Qualified Code(s): I71.21 - Aneurysm of the ascending aorta, without rupture Plan: CT scan of the chest done 01/02/2023 shows dilated ascending aorta 4.3 x 4.4 cm. He has a history of hypertension which is currently well controlled on lisinopril. Echocardiogram done 06/22/2023 showing EF 65-70%, grade 1 diastolic dysfunction, mild AR, ascending aorta 4.6 cm. Reviewed this finding with him in detail on last visit. Discuss the need for good blood pressure control and the avoidance of heavy lifting. He currently feels well with no concerning symptoms. Blood pressure 116/70. No med changes made at this time. Will plan for repeat echocardiogram prior to his next visit. Cardiology follow-up 6 months, sooner if needed (2) Atherosclerotic cardiovascular disease: Code(s): I25.10 - Atherosclerotic heart disease of [place] coronary artery without angina pectoris Category: Medical Plan: CT scan of the chest also showed some atherosclerotic calcifications along the aorta. He has no reports of anginal sounding symptoms. He has no prior known history of heart disease. He has risk factors of hypertension and hyperlipidemia. An exercise nuclear stress test was done on 06/22/2023 with exercise portion showing exercise 5 minutes with shortness of breath, no EKG changes. The nuclear scan portion of test was never fully completed. Patient did not go back for the rest portion. At this time he tells me he does not want to complete that test as he does not want the radiation exposure. In the absence of symptoms will hold off on nuclear stress test at present. His ex ercise stress test was reassuring. He has had issues with nosebleeds in the past. Will hold off on daily aspirin. He is on rosuvastatin and ideal LDL goal should be less than 70. (3) Hiatal hernia: Code(s): K44.9 - Diaphragmatic hernia without obstruction or gangrene Category: Medical Plan: Recent repair completed and he states he is doing well Plan Time spent on chart review, documentation, interview and assessment Orders: Orders CA echo transthoracic complete 06/20/24 I71.21 - Aneurysm of the ascending aorta, without rupture Coding Level of Care Code Est Pt Level 4 (84686) Diagnoses Aneurysm of ascending aorta without rupture I71.21 Presence of rupture: without rupture Atherosclerotic cardiovascular disease I25.10 Hiatal hernia K44.9 CPT Codes EKG - CPT: 21171-[id number], Complete ([id number]) Time Spent (min) 28
== END 2024-01-05 15:07 | disposition home or self-care (01) ==
PROVIDERS: PCP Registered Nurse; Visit Provider Nurse Practitioner Family
DX: I71.21 Aneurysm of the ascending aorta, without rupture (principal); I25.10 Atherosclerotic heart disease of native coronary artery without angina pectoris; K44.9 Diaphragmatic hernia without obstruction or gangrene
CPT/HCPCS: 93010; 99214

== ENCOUNTER → 2024-01-05 14:15 | Outpatient (BNVA) | payer MEDICARE, MEDICAID, SELFPAY | PROVIDERS: PCP Registered Nurse; Visit Provider Nurse Practitioner Family | DX: I71.21 Aneurysm of the ascending aorta, without rupture (principal); I25.10 Atherosclerotic heart disease of native coronary artery without angina pectoris; K44.9 Diaphragmatic hernia without obstruction or gangrene | CPT/HCPCS: 93005; 99212 ==

== ENCOUNTER → 2024-06-17 13:27 | Outpatient (REF) | payer MEDICARE, MEDICAID, SELFPAY ==
--- NOTE | 2024-06-17 13:30 | CA_ITS ---
Transthoracic Echocardiogram Patient (Last, First, Middle): Donaldo Jean-Baptiste C Gender: Male Date of : 1950 Age: 73 Procedure Date: 06/17/2024 Procedure Type: Transthoracic Echocardiogram Location: OP Height: 180.34 cm Weight: 81.65 kg BSA: 2.02 m2 Heart Rate: bpm BP: 122 / 60 mmHg Hoisting Engineer: Referring MD: Lianne Hanna SUPERVISOR FLOOR ASSEMBLYManju Exchange Clerk: Zander Cox MD Symptoms: I71.21 - Aneurysm of the ascending aorta, without rupture Study Quality: Fair ECG Rhythm: Sinus Conclusions: - 1. Normal LV ejection fraction of 60-65% with grade 1 diastolic dysfunction 2. Mildly dilated left atrium 3. Measured ascending aortic size, 4.2 cm on this study, consider alternative imaging methods 4. Normal RV systolic pressure 5. No gross pericardial effusion Findings Left Ventricle Normal left ventricular size, thickness, and systolic function. The visually estimated ejection fraction is between 60-65%. Spectral Doppler is indicative of an impaired relaxation filling pattern. E/E prime ratio is <8, consistent with normal filling pressures. Evidence suggests grade I (mild) diastolic dysfunction. Right Ventricle Normal right ventricular cavity size and systolic function. Atria The left atrium is mildly dilated. There is a mobile atrial septum noted. There is no evidence of interatrial shunt. The right atrium is normal in size. Aortic Valve Normal aortic valve structure and function. There is no aortic valve stenosis. There is mild aortic valve regurgitation. Mitral Valve Normal mitral valve structure and function. There is trace mitral valve regurgitation. There is no mitral valve stenosis. Pulmonic Valve The pulmonic valve is likely normal. There is trace pulmonic valve regurgitation. Tricuspid Valve Normal tricuspid valve structure. There is trace tricuspid valve regurgitation. The right ventricular systolic pressure is normal. The right ventricular systolic pressure is 13 mmHg. Normal right atrial pressure. There is no evidence of pulmonary hypertension. Great Vessels The aorta was not well visualized. The pulmonary artery was not well visualized. There is mild dilatation of the ascending aorta measuring 4.20 cm. compared to last year measured ascending aortic size is smaller, could be due to inadequate visualization of the entire ascending aorta. Clinical correlation suggested and consider thoracic CTA to evaluate ascending aorta Venous The inferior vena cava is normal in size and collapses greater than 50% with inspiration. Pericardium/Pleural There is no evidence of pericardial effusion. Prior Study Comparison Changes noted compared to prior study dated: 06/22/2023. see comments on ascending aorta Measurements 2D Linear Measurements IVSd: 1.13 0.6-0.9/0.6-1.0 cm LVIDd: 5.09 3.9-5.3/4.2-5.9 cm LVIDd Index: 2.52 2.4-3.2/2.2-3.1 cm/m2 LVIDs: 3.41 2.0-3.6 cm LVPWd: 1.02 0.7-1.1 cm Ao Root: 3.90 2.1-3.5 cm LA Diam: 3.70 2.7-3.8/3.0-4.0 cm LAIDs Index: 1.83 1.5-2.3 cm/m2 LV Mass: 257.54 67-162/88-224 g LV Mass Index: 127.49 43-95/49-115 g/m2 LVOT Diam: 2.50 3.0+(-)1.3 cm 2D Systolic Function EF 4C: 64.10 >55% EF 2C: 61.30 >55% EF BiP: 63.30 >55% Mitral Valve MV Pk E: 0.40 MV PK A: 0.86 MV Decel Time: 185.00 E/A: 0.50 E'Lateral: 5.00 E'Medial: 3.70 E/E' Med: 10.80 E/E' Lat: 8.00 PHT: 54.00 MVA PHT: 4.07 Decel [place]: 2.15 Aortic Valve AoV Pk Jakub: 1.25 AoV Mn Jakub: 0.83 AoV VTI: 0.31 AoV Pk Grad: 6.00 Aov Mn Grad: 3.00 PINEDA Cont.VTI: 4.47 AI Pk Jakub: 4.67 AI [place]: 2.26 LVOT LVOT Pk Jakub: 1.12 LVOT Mn Jakub: 0.72 LVOT VTI: 0.29 LVOT Pk Grad: 5.00 LVOT Mn Grad: 3.00 LVOT Diam: 2.50 LVOT Area: 4.91 Diastolic Function MV Pk E: 0.40 MV Pk A: 0.86 E/A: 0.50 E'Medial: 3.70 E/E' Med: 10.80 E' Laterial: 5.00 E/E' Lat: 8.00 Right Ventricle TAPSE (mm): 27.00 TVS' Jakub: 11.00 Tricuspid Valve TR Pk Jakub: 1.56 TR Pk Grad: 10.00 RA Press: 3.00 RVSP: 13.00 Great Vessels Aorta Ao Root-2D: 3.90 2.0-3.7 cm Ao Asc: 4.20 2.1-3.4 cm Pulmonary Valve PV Pk Jakub: 0.86 Peak PV Grad: 3.00 Updated in Other Vendor System with Status of Final Zander Cox MD electronically signed on 06/18/2024 9:53:21 AM with status of Final
== END ==
LOC: HO.CARD 13:27
PROVIDERS: PCP Registered Nurse; Visit Provider Nurse Practitioner Family
DX: I71.21 Aneurysm of the ascending aorta, without rupture (principal)
CPT/HCPCS: 93306

== ENCOUNTER → 2024-06-17 13:30 | Outpatient (BNV) | payer MEDICARE, MEDICAID, SELFPAY | PROVIDERS: PCP Registered Nurse; Visit Provider Internal Medicine Cardiovascular Disease | DX: I35.1 Nonrheumatic aortic (valve) insufficiency (principal); I71.21 Aneurysm of the ascending aorta, without rupture | CPT/HCPCS: 93306 ==

== ENCOUNTER 2025-07-11 08:42 | Outpatient (REF) | payer MEDICARE, MEDICAID, SELFPAY ==
--- OUTSIDE RECORDS SUMMARY | 2025-07-10 13:45 | XMS_ITS | Encounter Summary ---
Author Organization [employer] Address [address] [place] [address] 7 [place] [address] Care Team Providers Care Sight Mounter Name Role Phone Mya Alas OR RN Primary Care Provider [phone] Reason for Referral * Consultation (Routine) - Authorized Specialty Diagnoses / Procedures Referred By Justino t Referred To Contact Dental Coating Machine Helper / Dentistry Diagnoses Health care maintenance Arthur Castle FNP [address] [place] [address] Phone: tel: fax: Referral ID Status Reason Start Date Expiration Date Visits Requested Visits Authorized [id number] Authorized Consult and Treat 07/10/2025 07/10/2026 1 1 * Consultation (Urgent) - Pending Review Specialty Diagnoses / Procedures Referred By Justino t Referred To Contact Gastroenterology Diagnoses Left lower quadrant abdominal pain Arthur Castle FNP [address] [place] [address] Phone: tel: fax: Referral ID Status Reason Start Date Expiration Date Visits Requested Visits Authorized [id number] Pending Review Specialty Services Required 07/10/2026 1 1 * Consultation (Routine) - Pending Review Specialty Diagnoses / Procedures Referred By Justino t Referred To Contact Cardiology Diagnoses Aneurysm of ascending aorta without rupture (CMS/HCC) Arthur Castle FNP [address] [place] [address] Phone: tel: fax: Referral ID Status Reason Start Date Expiration Date Visits Requested Visits Authorized [id number] Pending Review Specialty Services Required 07/10/2026 1 1 Scheduling Instructions [facility] cardiology to reestablish care and monitor Ascending Aortic Dissection. Reason for Visit * Reason Comments Follow-up Encounter Details Date Type Department Care Team (Late st Contact Info) Description 07/10/2025 1:45 PM EST Office Visit [facility] MEDICINE [address] [place] [address] Mya Alas FNP [address] [place] [address] Left lower quadrant abdominal pain (Primary Dx); Aneurysm of ascending aorta without rupture (CMS/HCC); Health care maintenance; Encounter for immunization Social History Tobacco Use Types Packs/Day Years Used Date Smoking Tobacco: Former Cigarettes Smokeless Tobacco: Never Tobacco Cessation:Counseling Given: Not Answered Alcohol Use Standard Drinks/Week Comments Never 0 (1 standard drink = 0.6 oz pur e alcohol) Depression Answer Date Recorded Patient Health Questionnaire-9 Score 0 07/10/2025 Patient Health Questionnaire-9 Score 0 07/10/2025 Last PHQ-9: Questionnaire Data Not on file 1 09/10/2024 Housing Stability Answer Date Recorded What is your housing situation today? I have rhoda cuenca 07/10/[address] you li ve. Do you have problems with any of the following? None of the above 07/10/2025 Food Insecurity Answer Date Recorded Within the past 12 months, y ou worried that your food would run out before you got money to buy more: Never True 07/10/2025 Within the past 12 months,th e food you bought just didn't last and you didn't have enough money to get more: Never True Transportation Answer Date Recorded In the past 12 months, has l ack of transportation kept you from medical appts, meetings, work or from getting things needed for daily living? No 07/10/2025 Utilities Answer Date Recorded In the past 12 months, has t he electric, gas, oil or water company threatened to shut off services in your home? No 07/10/2025 Depression Answer Date Recorded Patient Health Questionnaire-2 Score 0 07/10/2025 Internet Access Answer Date Recorded Internet Access Q1 Yes 07/10/2025 Internet Access Q2 Not on file 07/10/2025 Sex and Gender Information Value Date Recorded Sex Assigned at Male 05/26/2022 10:17 AM EDT Legal Sex Male 10:17 AM EDT Gender Identity Male 05/26/2022 10:17 AM EDT Sexual Orientation Choose not to disclose 2021 10:17 AM EDT documented as of this encounter Last Filed Vital Signs Vital Sign Reading Time Taken Comments Blood Pressure 130/86 07/10/2025 1:37 PM EST Pulse 84 07/10/2025 1:37 PM EST Temperature 36.3 C (97.4 F) 07/10/2025 1:37 PM EST Respiratory Rate 20 07/10/2025 1:37 PM EST Oxygen Saturation 95% 07/10/2025 1:37 PM EST Inhaled Oxygen Concentration - - Weight 81.8 kg (180 lb 6.4 oz) 07/10/2025 1:37 P M EST Height 177.8 cm (5' 10 ) 07/10/2025 1:37 PM EST Body Mass Index 25.88 07/10/2025 1:37 PM EST documented in this encounter Functional Status * Over the past 2 weeks, how often have you been bothered by any of the following problems? Question Answer Date of Assessment Author Patient Health Questionnaire-2 Score 0 07/10/2025 1:38 PM EST Vero Avery [place] * Little interest or pleasure in doing things Answer Date of Assessment Author Not at all 07/10/2025 1:38 PM EST Vero Ochoa [place] * Feeling down, depressed, or hopeless Answer Date of Assessment Author Not at all 07/10/2025 1:38 PM EST Vero Ochoa [place] * Trouble falling or staying asleep, or sleeping too much Answer Date of Assessment Author Not at all 07/10/2025 1:38 PM EST Vero Ochoa [place] * Feeling tired or having little energy Answer Date of Assessment Author Not at all 07/10/2025 1:38 PM Vero Freedman [place] * Poor appetite or overeating Answer Date of Assessment Author Not at all 07/10/2025 1:38 PM Vero Freedman [place] * Feeling bad about yourself - or that you are a failure or have let yourself or your family down Answer Date of Assessment Author Not at all 07/10/2025 1:38 PM Vero Freedman [place] * Trouble concentrating on things, such as reading the newspaper or watching television Answer Date of Assessment Author Not at all 07/10/2025 1:38 PM Vero Freedman [place] * Moving or speaking so slowly that other people could have noticed? Or the opposite - being so fidgety or restless that you have been moving around a lot more than usual. Answer Date of Assessment Author Not at all 07/10/2025 1:38 PM Vero Freedman [place] * Thoughts that you would be better off or hurting yourself in some way Answer Date of Assessment Author Not at all 07/10/2025 1:38 PM Vero Freedman [place] * Patient Health Questionnaire-9 Score Answer Date of Assessment Author 0 07/10/2025 1:38 PM Vero Freedman [place] * Over the last 2 weeks, how often have you been bothered by any of the following problems? Question Answer Date of Assessment Author Feeling nervous, anxious, or on edge 0 07/10/2025 1:38 PM Vero Bower [place] Not being able to stop or control worrying 0 07/10/2025 1:38 PM Vero Bower [place] Worrying too much about different things 0 07/10/2025 1:38 PM Vero Bower [place] Trouble relaxing 0 07/10/2025 1:38 PM Vero Che MA Being so restless that it is hard to sit still 0 07/10/2025 1:38 PM EST Vero Avery [place] Becoming easily annoyed or irritable 0 07/10/2025 1:38 PM EST Vero Avery [place] Feeling afraid as if something awful might happen 0 07/10/2025 1:38 PM EST Vero Pete MA ROGERIO-7 Total Score 0 07/10/2025 1:38 PM EST Vero Avery [place] documented as of this encounter Miscellaneous Notes * Assessment & Plan Note - EYAL Fernandez - 07/10/2025 1:45 PM EST Associated Problem(s): Aneurysm of 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 - Referral to cardiology for continued monitoring and follow-up. Advised importance of regular evaluation to detect changes in aneurysm size. Orders: Referral to Cardiology; Future documented in this encounter Plan of Treatment Scheduled Orders Name Type Priority Associated Diagnoses Orde r Schedule CBC auto differential Lab Routine Health care maintenance Expected: 07/10/2025 (Approximate), Expires: 07/10/2026 Comprehensive Metabolic Panel Lab Routine Health care maintenance Expected: 07/10/2025 (Approximate), Expires: 07/10/2026 Lipid Panel, Standard Lab Routine Health care maintenance Expected: 07/10/2025 (Approximate), Expires: 07/10/2026 Scheduled Referrals Name Type Priority Associated Diagnoses Order Schedule Referral to Cardiology Outpatient Referral Routine Aneurysm of ascending aorta without rupture (CMS/HCC) Expected: 07/10/2025 (Approximate), Expires: 07/10/2026 Referral to Gastroenterology Outpatient Referral Urgent Left lower quadrant abdominal pain Expected: 07/10/2025 (Approximate), Expires: 07/10/2026 Referral to [facility] Dental Adult Outpatient Referral Routine Health care maintenance Expected: 07/10/2025 (Approximate), Expires: 07/10/2026 documented as of this encounter Visit Diagnoses Diagnosis Left lower quadrant abdominal pain- Primary Aneurysm of ascending aorta without rupture ([facility]) Health care maintenance Encounter for immunization documented in this encounter Additional Health Concerns Assessment Noted Time PHQ-9 Depression Total Score: 0 07/10/20 25 1:38 PM EST documented as of this encounter Care Teams Sight Mounter Relationship Specialty Start Date End Date Mya Alas FNP [address] [place] [id number] PCP - General Family Medicine 03/20/22 documented as of this encounter
--- OUTSIDE RECORDS SUMMARY | 2025-07-11 09:24 | XMS_ITS ---
Author Name [facility] Organization Unknown History of Medication Use Medication Directions Dispensed Refills Start Date End Date Stat us ondansetron (ZOFRAN-ODT) 4 MG disintegrating tablet Take 1 tablet (4 mg total) by mouth 3 times daily (every 8 hours) as needed for nausea or vomiting. Place tablet on tongue to dissolve. 01/31/2023 03/03/2023 active fluconazole (diFLUcan) 100 MG tablet Take 1 tablet (100 mg total) by mouth daily. 01/31/2023 02/08/2023 active cetirizine (ZyrTEC) 10 MG chewable tablet Chew 1 tablet (10 mg total) daily. active lisinopril (PRINIVIL,ZeSTRIL) 10 MG tablet Take 1 tablet (10 mg total) by mouth daily. active PANTOprazole (PROTONIX) 40 MG EC tablet Take 1 tablet (40 mg total) by mouth every morning before breakfast. active rosuvastatin (CRESTOR) 20 MG tablet Take 1 tablet (20 mg total) by mouth daily. active salmeterol (SEREVENT) 50 mcg/puff diskus inhaler Inhale 1 puff 2 (two) times a day. active umeclidinium bromide (INCRUSE ELLIPTA) 62.5 mcg/inh inhaler Inhale 1 puff daily. active Problems Problem Status Onset Date Problem Type Date of Resoluti on Source GI bleed active 2023-01-26 ProblemAct [facility] Coffee ground emesis active 2023-01-26 ProblemAct [facility] Hiatal hernia active 2023-01-26 ProblemAct [facility] T Encounters Encounter Type Encounter Reason Primary Diagnosis Location Date Ambulatory Diaphragmatic he rnia without obstruction or gangrene [facility] 02/17/2023 Inpatient Hematemesis [facility] 01/26/2023 Care Team Organization Name Specialty Phone Email Start Date End Da te [facility] 02/17/2023 [facility] 01/26/2023 023 [facility] 01/26/2023
--- OUTSIDE RECORDS SUMMARY | 2025-07-11 09:24 | XMS_ITS | Encounter Summary ---
Author Organization [employer] Address [address] [facility] [address] [place] [address] Care Team Providers Care Metal Sprayer Machined Parts Name Role Phone Mya Alas FOOD CART ATTENDANT Primary Care Provider [phone] Encounter Details Date Type Department Care Team (Late st Contact Info) Description 08/22/2022 Orders Only [facility] MEDICINE [address] [place] [address] Anna Fajardo LPN Social History Tobacco Use Types Packs/Day Years Used Date Smoking Tobacco: Never Assessed Sex and Gender Information Value Date Recorded Sex Assigned at Male 05/26/2022 10:17 AM EDT Legal Sex Male 10:17 AM EDT Gender Identity Male 05/26/2022 10:17 AM EDT Sexual Orientation Choose not to disclose 2021 10:17 AM EDT documented as of this encounter Plan of Treatment Not on file documented as of this encounter Procedures Procedure Name Priority Date/Time Associated Diagnosis Comments TYPE AND SCREEN Routine 01/26/2023 4:26 AM EDT documented in this encounter Results * Type and screen (01/26/2023 4:26 AM EDT) Blood Type ABP [facility] Antibody Screen NEGATIVE [facility] 01/26/2023 4:26 AM EDT 01/26/2023 4:30 AM EDT us [facility] External Provider LAB BLO OD BANK TEST ORDERABLES Final Result [facility] [address] [place] [address] [phone] documented in this encounter Visit Diagnoses Not on filedocumented in this encounter Care Teams Metal Sprayer Machined Parts Relationship Specialty Start Date End Date Mya Alas FNP [address] [place] [id number] PCP - General Family Medicine 03/20/22 documented as of this encounter
--- OUTSIDE RECORDS SUMMARY | 2025-07-11 09:24 | XMS_ITS | Encounter Summary ---
Author Organization [email or web address] Address [address] [place] [address] 7t [place] [address] Care Team Providers Care Sales And Events Coordinator Name Role Phone [facility] Primary Care Provider [phone] Reason for Visit * Reason Onset Date Comments Returning Call 07/08/2024 Encounter Details Date Type Department Care Team ([facility] st Contact Info) Description 07/08/2024 Telephone [facility] MEDICINE [address] [place] [address] [facility] [address] [place] [address] Returning Call Social History Tobacco Use Types Packs/Day Years Used Date Smoking Tobacco: Former Cigarettes Smokeless Tobacco: Never Alcohol Use Standard Drinks/Week Comments Never 0 (1 standard drink = 0.6 oz pur e alcohol) Depression Answer Date Recorded Patient Health Questionnaire-9 Score 0 04/11/2024 Patient Health Questionnaire-9 Score 0 04/11/2024 Last PHQ-9: Questionnaire Data Not on file 0 04/11/2024 Housing Stability Answer Date Recorded What is your housing situation today? I have rhoda cuenca 04/11/[address] you li ve. Do you have problems with any of the following? None of the above 04/11/2024 Food Insecurity Answer Date Recorded Within the past 12 months, y ou worried that your food would run out before you got money to buy more: Never True 04/11/2024 Within the past 12 months,th e food you bought just didn't last and you didn't have enough money to get more: Never True Transportation Answer Date Recorded In the past 12 months, has l ack of transportation kept you from medical appts, meetings, work or from getting things needed for daily living? No 04/11/2024 Utilities Answer Date Recorded In the past 12 months, has t he electric, gas, oil or water company threatened to shut off services in your home? No 04/11/2024 Depression Answer Date Recorded Patient Health Questionnaire-2 Score 0 04/11/2024 Internet Access Answer Date Recorded Internet Access Q1 Yes 04/11/2024 Internet Access Q2 Not on file 04/11/2024 Sex and Gender Information Value Date Recorded Sex Assigned at Male 05/26/2022 10:17 AM EDT Legal Sex Male 10:17 AM EDT Gender Identity Male 05/26/2022 10:17 AM EDT Sexual Orientation Choose not to disclose 2021 10:17 AM EDT documented as of this encounter Miscellaneous Notes * Telephone Encounter - Nick Butts - 07/08/2024 4:17 PM EST Tc from pt returning call regarding message below. CARLOS Morel placed outbound call to the patient to schedule Medicare Annual Wellness Visit Pt stated CC offered them an appt in Jul but signwriter did not see anything available. documented in this encounter Plan of Treatment Not on file documented as of this encounter Visit Diagnoses Not on filedocumented in this encounter Additional Health Concerns Assessment Noted Time PHQ-9 Depression Total Score: 0 04/11/20 24 1:42 PM EDT documented as of this encounter Care Teams Sales And Events Coordinator Relationship Specialty Start Date End Date Mya Alas FNP [address] [place] [id number] PCP - General Family Medicine 03/20/22 documented as of this encounter
--- OUTSIDE RECORDS SUMMARY | 2025-07-11 09:24 | XMS_ITS | Encounter Summary ---
Author Organization [employer] Address [address] [facility] 7[address] [place] [address] Care Team Providers Care Sap Trainer Name Role Phone [facility] Primary Care Provider [phone] Reason for Visit * Reason Onset Date Comments Med Refill 09/10/2023 Encounter Details Date Type Department Care Team ([facility] st Contact Info) Description 09/10/2023 Telephone [facility] MEDICINE [address] [place] [address] [facility] [address] [place] [address] Med Refill Social History Tobacco Use Types Packs/Day Years Used Date Smoking Tobacco: Former Cigarettes Smokeless Tobacco: Never Alcohol Use Standard Drinks/Week Comments Never 0 (1 standard drink = 0.6 oz pur e alcohol) Depression Answer Date Recorded Patient Health Questionnaire-9 Score 0 12/29/2022 Housing Stability Answer Date Recorded What is your housing situation today? I have rhoda cuenca 05/20/[address] you li ve. Do you have problems with any of the following? None of the above 05/20/2023 Food Insecurity Answer Date Recorded Within the past 12 months, y ou worried that your food would run out before you got money to buy more: Never True 05/20/2023 Within the past 12 months,th e food you bought just didn't last and you didn't have enough money to get more: Never True Transportation Answer Date Recorded In the past 12 months, has l ack of transportation kept you from medical appts, meetings, work or from getting things needed for daily living? No 05/20/2023 Utilities Answer Date Recorded In the past 12 months, has t he electric, gas, oil or water company threatened to shut off services in your home? No 05/20/2023 Depression Answer Date Recorded Patient Health Questionnaire-2 Score 0 12/29/2022 Sex and Gender Information Value Date Recorded Sex Assigned at Male 05/26/2022 10:17 AM EDT Legal Sex Male 10:17 AM EDT Gender Identity Male 05/26/2022 10:17 AM EDT Sexual Orientation Choose not to disclose 2021 10:17 AM EDT documented as of this encounter Miscellaneous Notes * Telephone Encounter - Pari Villalba LPN - 09/10/2023 9:40 AM EST Medication pended to PCP. * Telephone Encounter - Dimple Miller - 09/10/2023 9:35 AM EST TC from pt requesting medication refill. Medications needing refill : lisinopril 10 MG tablet To be sent to: [facility] - [place], [place] - [address] [place] [address] documented in this encounter Plan of Treatment Not on file documented as of this encounter Visit Diagnoses Not on filedocumented in this encounter Additional Health Concerns Assessment Noted Time PHQ-9 Depression Total Score: 0 12/30/19 23 10:40 AM EDT documented as of this encounter Care Teams Sap Trainer Relationship Specialty Start Date End Date Mya Alas FNP [address] [facility] [place] [address] PCP - General Family Medicine 03/20/22 documented as of this encounter
--- OUTSIDE RECORDS SUMMARY | 2025-07-11 09:24 | XMS_ITS | Clinical Summary ---
Author Organization [employer] Address [address] [place] [address] 7[address] [place] [address] Care Team Providers Care Computational Chemist Name Role Phone Mya Alas [facility] Primary Care Provider [phone] Allergies No known active allergies Medications Serevent Diskus 50 MCG/ACT aerosol powderIndication s:Pulmonary emphysema, unspecified emphysema type INHALE 1 PUFF BY MOUTH EVERY TWELVE HOURS 60 each 3 4 Active cetirizine (ZyrTEC) 10 MG tablet TAKE 1 TABLET BY MOUTH EVERY DAY IN THE MORNING 90 tablet 2 06/30/2025 2:03 PM EST 5 Active rosuvastatin (Crestor) 20 MG tablet TAKE 1 TABLET BY MOUTH EVERY DAY 90 tablet 2 5 Active albuterol 108 (90 Base) MCG/ACT inhalerIndicatio ns:Shortness of breath Inhale 2 puffs Every 4-6 hours as needed for wheezing or shortness of breath. 18 g 5 Active lisinopril 10 MG tablet TAKE 1 TABLET BY MOUTH EVERY DAY 90 tablet 1 5 Active polycarbophil (Fibercon) 625 MG tablet Take 1 tablet (625 mg) by mouth Once per day. 30 tablet 3 5 05/10/20 26 Active Saccharomyces boulardii (probiotic) 250 MG capsule Take 1 capsule (250 mg) by mouth Once per day. 30 capsule 3 5 Active naproxen (Naprosyn) 500 MG tablet Take 1 tablet (500 mg) by mouth if needed in the morning and at bedtime for mild pain or moderate pain. 30 tablet 1 5 05/10/20 26 Active baclofen (Lioresal) 10 MG tablet Take 0.5 tablets (5 mg) by mouth if needed in the morning, at noon, and at bedtime for muscle spasms. 30 tablet 1 5 05/10/20 26 Active Active Problems Patient Care Coordination No te Formatting of this note migh t be different from the original. C3/CM Diane Mckinley RN Problem Noted Date Diagnosed Date Alcohol use disorder in remission 03/17/2023 Overview (03/17/2023): Sober x 27 years Healthcare maintenance 03/17/2023 Overview (03/17/2023): C-Scope: 2022 PSA: 2022 1.55 STI Screening: Declines Vision Exam: Referred to [facility] eye care Dental Care: Needs to establish at [facility] Immunizations: Accepts PCV 20 Aneurysm of ascending aorta without rupture 01/2023 Overview (04/14/2024): [facility] cardiology Assessment & Plan (07/10/2025 3:05 PM EST): - Ascending aortic aneurysm with separation of vessel layers; requires ongoing surveillance. - Referral to cardiology for continued monitoring and follow-up. Advised importance of regular evaluation to detect changes in aneurysm size. Orders: Referral to Cardiology; Future Hiatal hernia 01/26/2023 Overview (04/14/2024): S/p hiatal hernia repair in setting of gastric outlet obstruction at [facility] 01/2023 after presenting to [facility] ED with intractable coffee ground emesis. Endoscopy during hospitalization showed neal esophagitis Mixed hyperlipidemia 12/29/2022 Overview (03/17/2023): Rosuvastatin Essential hypertension 08/05/2021 Overview (03/17/2023): Lisinopril 10mg - Aerobic exercise to reduce BP. Initial goal of 30 min walk 3-5x/week. Increase as tolerated. - low-sodium diet (goal: <2g/day) and heart healthy diet such as DASH to reduce BP and prevent ASCVD. - Home BP monitoring 1-2 x day with goal of <140/90. - Seek immediate medical attention for chest pain, palpitations, SOB, syncope, or sudden changes in mental status. - Do not change or discontinue current prescriptions without first consulting health care provider Assessment & Plan (03/17/2023 12:18 PM EDT): Well controlled Continue current regimen Chronic obstructive lung disease 06/11/2021 Overview (03/17/2023): Quit smoking 23 years ago Previously followed by pulmonology Rx'd serevent, incruse, albuterol Assessment & Plan (03/17/2023 12:21 PM EDT): No evidence of respiratory distress Mildly decreased breath sounds c/w baseline Will trial tesjacquelineon elisabeth for chronic cough and refer back to pulmonology for follow up Resolved Problems Problem Noted Date Diagnosed Date Resolved Date Gastric volvulus 01/30/2023 03/18/2023 Coffee ground emesis 01/26/2023 023 GI bleed 01/26/2023 04/14/2024 Encounters Date Type Department Care Team Description 07/10/2025 1:45 PM EST Office Visit [address] [address] Mya Alas FNP Left lower quadrant abdominal pain (Primary Dx); Aneurysm of ascending aorta without rupture (CMS/HCC); Health care maintenance; Encounter for immunization 07/10/2025 Travel 06/30/2025 Patient Outreach [address] [address] Mya Alas FNP Pre-visit Planning ((Unable to reach for PVP screening, LVM) to be completed in office ) 05/10/2025 11:15 AM EDT Office Visit [address] [address] Pari Weiss DO Left groin pain (Primary Dx); Abdominal bloating 05/10/2025 Travel 05/10/2025 Telephone [facility] [address] [place] [address] [facility] Chart Prep 05/09/2025 Telephone [facility] MEDICINE [address] [place] [address] [facility] Nurse Triage from Last 3 Months Immunizations Immunization Administration Dates Next Due Influenza injectable quadrivalent preservative f ree 06/11/2021 Influenza, High Dose Seasonal, Preservative Free 07/10/2025,04/11/2024 Pfizer Covid-19 Vaccine 12+ 07/10/2025 Pneumococcal Conjugate PCV 13 12/31/2021 Pneumococcal Conjugate PCV 20 03/03/2023 Tdap 06/11/2021 Zoster, Recombinant 03/04/2022,12/31/2021 Family History Medical History Relation Name Comments COPD Father Hyperlipidemia Father Dementia Mother Relation Name Status Comments Father Mother Social History Tobacco Use Types Packs/Day Years [...] is your housing situation today? I have rhodafred cuenca 07/10/[address] you [...] not to disclose 2021 10:17 AM EDT Last Filed Vital Signs Vital Sign Reading [...] Mass Index 25.88 07/10/2025 1:37 PM EST Plan of Treatment Health Maintenance Due Date Last Done Comments CT Colonography 1950 Colonoscopy 1950 Colorectal Cancer Screening 1950 FIT DNA/Cologuard 1950 FIT 1950 FOBT 1950 Sigmoidoscopy 1950 Alcohol/Substance Use Screening 1962 RSV Patients and Patients Aged 60 years or older (1 - Risk 50-74 years 1-dose series) 2000 COVID-19 Vaccine ( season) 2026 07/10/2025, 11/07/2021, 05/31/2021, Additional history exists Depression Screening 07/10/2026 07/10/2025, 07/10/20 25 SDOH Screening 07/10/2026 07/10/2025 Tobacco Screening 07/10/2026 07/10/2025 Lipid Panel 12/30/2027 12/29/2022, 06/11/2021 DTaP/Tdap/Td Vaccines (2 - Td or Tdap) 06/11/2031 06/11/2021 Hepatitis C Screening Completed 06/11/2021 Zoster Vaccines Completed 03/04/2022, 12/31/2021 Pneumococcal Vaccine: 50+ Years Completed 03/03/2023, 12/31/2021 Influenza Vaccine Completed 07/10/2025, , 06/11/2021 HIB Vaccines Aged Out No longer eligi ble based on patient's age to complete this topic HPV Vaccines Aged Out No longer eligi ble based on patient's age to complete this topic Hepatitis A Vaccines Aged Out No long er eligible based on patient's age to complete this topic Hepatitis B Vaccines Aged Out No long er eligible based on patient's age to complete this topic IPV Vaccines Aged Out No longer eligi ble based on patient's age to complete this topic Meningococcal B Vaccine Aged Out No l onger eligible based on patient's age to complete this topic Meningococcal Vaccine Aged Out No sal wilfrido eligible based on patient's age to complete this topic RSV under 20 months Aged Out No longe r eligible based on patient's age to complete this topic Rotavirus Vaccines Aged Out No longer eligible based on patient's age to complete this topic Procedures Procedure Name Priority Date/Time Associated Diagnosis Comments LIPID PANEL, STANDARD Routine 12/29/2022 11:30 AM EDT Mixed hyperlipidemia ZZZ HISTORICAL HEPATITIS C AB W/REFL TO HCV RNA, QN, PCR Routine 06/11/2021 11:45 AM EST from Last 3 Months or Most Recently Relevant to Health Maintenance Results * Lipid Panel, Standard (12/29/2022 11:30 AM EDT) Cholesterol, Total 101 <200 mg/dL [facility] HDL Cholesterol 45 > OR = 40 mg/dL [facility] Triglycerides 99 <150 mg/dL [facility] LDL Cholesterol 38 mg/dL (calc) [facility] Comment: Reference range: <100 Desirable range <100 mg/dL for primary prevention; <70 mg/dL for patients with CHD or diabetic patients with > or = 2 CHD risk factors. LDL-C is now calculated using the Asim calculation, which is a validated novel method providing better accuracy than the Friedewald equation in the estimation of LDL-C. Thompson SS et al. ELIZ. 2013;310(19): 6717-0651 (http://Parclick.com.Personetics Technologies/faq/MYW514) Chol/HDLC Ratio 2.2 <5.0 (calc) [facility] Non-HDL Cholesterol 56 <130 mg/dL (calc) [facility] Comment: For patients with diabetes plus 1 major ASCVD risk factor, treating to a non-HDL-C goal of <100 mg/dL (LDL-C of <70 mg/dL) is considered a therapeutic option. Blood Venous blood specimen / Unknown 12/29/2022 11:30 AM EDT 12/29/2022 11:30 AM EDT Narrative [facility] - 12/30/2022 5:39 AM EDT FASTING:YES FASTING: YES [facility] LAB BLOOD ORDERABLES Final Re sult [facility] [address], [place] [address] [facility] [address] [place] [address] * HEPATITIS C AB W/REFL TO HCV RNA, QN, PCR (06/11/2021 11:45 AM EST) HEPATITIS C ANTIBODY NON-REACT SIL NON-REACT SIL [facility] INDEX 0.02 <1.00 [facility] Comment: HCV antibody was non-reactive. There is no laboratory evidence of HCV infection. In most cases, no further action is required. However, if recent HCV exposure is suspected, a test for HCV RNA (test code 89121) is suggested. For additional information please refer to http://education.Appurify/faq/IAW14x9 (This link is being provided for informational/ educational purposes only.) 06/11/2021 11:4 5 AM EST Kate Gilbert SERVICER TRA[employer] HISTORICAL/NON ORDERABLE LABS F inal Result [facility] [address] from Last 3 Months or Most Recently Relevant to Health Maintenance Insurance [facility] STANDARD MEDICARE Care Teams Computational Chemist Relationship Specialty Start Date End Date Mya Alas FNP [address] [place] [address] PCP - General Family Medicine 03/20/22
--- OUTSIDE RECORDS SUMMARY | 2025-07-11 09:24 | XMS_ITS | Encounter Summary ---
Author Organization [employer] Address [address] [facility] [address] [place] [address] Care Team Providers Care Field Artillery Operations Specialist Name Role Phone Mya Alas [employer]EN[employer] Primary Care Provider [phone] Encounter Details Date Type Department Care Team (Latest Contact Info) Description 07/10/2025 Travel Social History Tobacco Use Types Packs/Day Years [...] AM EDT documented as of this encounter Functional Status * Over the past 2 weeks, how often have you been bothered by any of the following problems? Question Answer Date of Assessment Author Patient Health Questionnaire-2 Score 0 07/10/2025 1:38 PM Vero Bower [place] * Little interest or pleasure in doing things Answer Date of Assessment Author Not at all 07/10/2025 1:38 PM Vero Freedman [place] * Feeling down, depressed, or hopeless Answer Date of Assessment Author Not at all 07/10/2025 1:38 PM Vero Freedman [place] * Trouble falling or staying asleep, or sleeping too much Answer Date of Assessment Author Not at all 07/10/2025 1:38 PM Vero Freedman [place] * Feeling tired or having little [...] of Assessment Author 0 07/10/2025 1:38 PM EST Vero Ochoa MA * Over the last 2 weeks, how often have you been bothered by any of the following problems? Question Answer Date of Assessment Author Feeling nervous, anxious, or on edge 0 07/10/2025 1:38 PM Vero Bower MA Not being able to stop or control worrying 0 07/10/2025 1:38 PM Vero Bower MA Worrying too much about different things 0 07/10/2025 1:38 PM EST Vero Avery MA Trouble relaxing 0 07/10/2025 1:38 PM EST Vero Bojorquez MA Being so restless that it is [...] Avery MA documented as of this encounter Plan of Treatment Not on file documented as of this encounter Visit Diagnoses Not on filedocumented in this encounter Additional Health Concerns Assessment Noted Time PHQ-9 Depression Total Score: 0 07/10/20 25 1:38 PM EST documented as of this encounter Care Teams Field Artillery Operations Specialist Relationship Specialty Start Date End Date Mya Alas FNP [address] [place] [id number] PCP - General Family Medicine 03/20/22 documented as of this encounter
[2025-07-11 11:28] LABS: MANUAL DIFF FLAG NO
[2025-07-11 11:34] LABS: Hematocrit 45.9 % (42.0-52.0); Hemoglobin 14.7 g/dl (14.0-18.0); Imm Gran Abs Auto 0.03 X10*3/uL (0.00-0.03); Imm Gran Pct Auto 0.3 % (0.0-0.4); Lymphocytes Absolute Auto 1.8 X10*3/uL (1.2-4.9); Mean Corpuscular HGB Conc 32.0 g/dl (31.0-36.0); Mean Corpuscular Hemoglobin 26.9 pg (27.0-33.0); Mean Corpuscular Volume 83.9 fL (80.0-98.0); NRBC Abs Auto 0.000 X10*3/uL (0.0-0.012); NRBC Pct Auto 0.0 /100WBC (0.0-0.2); Platelet Count 228 X10*3/uL (160-400); Red Blood Count 5.47 X10*6/uL (4.60-5.80); White Blood Count 9.8 X10*3/uL (4.8-10.8)
[2025-07-11 11:54] LABS: Alanine Aminotransferase 18 U/L (0-40); Albumin Level 4.2 g/dL (3.5-5.0); Alkaline Phosphatase 48 U/L (39-117); Anion Gap 12 (12-20); Aspartate Amino Transferase 26 U/L (5-37); Blood Urea Nitrogen 27 mg/dL (9-16); Calcium 9.0 mg/dL (8.4-10.2); Carbon Dioxide 23 mmol/L (22-29); Chloride 110 mmol/L (96-108); Cholesterol 143 mg/dL (<200); Estimated Glomerular Filt Rate > 60; HDL Cholesterol 39 mg/dL (>40); Potassium 4.1 mmol/L (3.3-5.1); Sodium 141 mmol/L (135-145); Total Protein 7.2 g/dL (6.5-8.0); Triglycerides 108 mg/dL (<150)
== END 2025-07-11 08:43 | disposition home or self-care (01) ==
LOC: HO.HHCL 08:42
PROVIDERS: PCP Registered Nurse
DX: Z00.00 Encounter for general adult medical examination without abnormal findings (principal); Z13.6 Encounter for screening for cardiovascular disorders
CPT/HCPCS: 36415; 80053; 80061; 85025

== ENCOUNTER 2025-07-21 14:11 | Outpatient (AMB) | payer MEDICARE, MEDICAID, SELFPAY ==
--- OUTSIDE RECORDS SUMMARY | 2025-07-21 14:13 | XMS_ITS | Clinical Summary ---
Author Organization [facility] Address [address] [place] [address] Care Team Providers Care Manager Culinary Name Role Phone Mya Alas SASH STICKER Primary Care Provider [phone] Allergies No known active allergies Medications lisinopril (PRINIVIL,ZeSTRIL) 10 MG tablet Take 1 tablet (10 mg total) by mouth daily. Active cetirizine (ZyrTEC) 10 MG chewable tablet Chew 1 tablet (10 mg total) daily. Active rosuvastatin (CRESTOR) 20 MG tablet Take 1 tablet (20 mg total) by mouth daily. Active PANTOprazole (PROTONIX) 40 MG EC tablet Take 1 tablet (40 mg total) by mouth every morning before breakfast. Active salmeterol (SEREVENT) 50 mcg/puff diskus inhaler Inhale 1 puff 2 (two) times a day. Active umeclidinium bromide (INCRUSE ELLIPTA) 62.5 mcg/inh inhaler Inhale 1 puff daily. Active fluconazole (diFLUcan) 100 MG tabletIndications:H iatal hernia Take 1 tablet (100 mg total) by mouth daily. 7 tablet 3 Active ondansetron (ZOFRAN-ODT) 4 MG disintegrating tabletIndications:H iatal hernia Take 1 tablet (4 mg total) by mouth 3 times daily (every 8 hours) as needed for nausea or vomiting. Place tablet on tongue to dissolve. 20 tablet 3 Active Active Problems Problem Noted Date Diagnosed Date Coffee ground emesis 01/26/2023 GI bleed 01/26/2023 Hiatal hernia 01/26/2023 Social History Tobacco Use Types Packs/Day Years Used Date Smoking Tobacco: Former Cigarettes Tobacco Cessation:Counseling Given: Not Answered Alcohol Use Standard Drinks/Week Comments Not Currently 0 (1 standard drink = 0.6 oz pur e alcohol) AUDIT-C Answer Date Recorded Q1: How often do you have a drink containing alcohol? Never 01/26/2023 Q2: How many drinks containi ng alcohol do you have on a typical day when you are drinking? Patient does not drink Q3: How often do you have si x or more drinks on one occasion? Never 01/26/2023 Sex and Gender Information Value Date Recorded Sex Assigned at Male 01/26/2023 10:56 AM EDT Legal Sex Male 4:36 AM EDT Gender Identity Male 01/26/2023 10:56 AM EDT Sexual Orientation Heterosexual (straight) 01/26 11:45 AM EDT Last Filed Vital Signs Vital Sign Reading Time Taken Comments Blood Pressure 117/70 02/17/2023 2:09 PM EDT Pulse 77 01/31/2023 10:19 AM EDT Temperature 36.4 C (97.6 F) 01/31/2023 10:19 AM EDT Respiratory Rate 18 01/31/2023 10:19 AM EDT Oxygen Saturation 97% 01/31/2023 10:19 AM EDT Inhaled Oxygen Concentration - - Weight 73.5 kg (162 lb) 02/17/2023 2:09 PM EDT Height 180.3 cm (5' 11 ) 01/26/2023 5:08 PM EDT Body Mass Index 22.59 01/26/2023 5:08 PM EDT Plan of Treatment Health Maintenance Due Date Last Done Comments Advance Care Planning 1950 Hepatitis C Virus Screening 1950 DTaP/Tdap/Td Vaccines (1 - Tdap) 1969 Colonoscopy 10/15/1995 Pneumococcal Vaccines 50+ (1 of 1 - PCV) 2000 RSV Vaccine 50 years and old er and Patients (1 - Risk 50-74 years 1-dose series) 2000 Zoster (Shingles) Vaccine (1 of 2) 2000 Influenza Vaccine 02/24/2025 06/11/2021 COVID-19 Vaccine ( - 2024-2 6 season) 2025 Hepatitis B Vaccines Aged Out No long er eligible based on patient's age to complete this topic Medical Devices Implanted Type Area Director Of Hotel Operations Device Identifier Shelf Expiration Date Model / Serial / Lot [id number] Mesh Surgical Phasix 4x3in Monofilament [employer] Rsrb Poly-4-Hb - [id number] Implanted:Qty: 1 on 01/29/2023 by Travis Stone MD at [facility] Mesh N/A: Esophagus [employer] 04/23/2024 [id number] / [id number] / [id number] Insurance MEDICARE PART A & B MEDICAID OUT OF STATE [facility] [place]ICARE PART A & B MEDICAID OUT OF STATE [facility] Advance Directives * Full Code (Latest Code Status on File) Date Activated Date Inactivated Comments 01/26/2023 2:12 PM Care Teams Manager Culinary Relationship Specialty Start Date End Date Mya Alas NP [address] [place] [address] JANIE Morales [id number] PCP - General Family Medicine 01/26/23
[2025-07-21 14:14] VITALS: BP 120/70; PULSE 69; BMI 24.9
--- NOTE | 2025-07-21 14:14 | A.OFFVIS_ITS ---
Vital Signs 07/21/25 14:14 Height 5 ft 11 in Weight 178 lb 9.191 oz BMI 24.9 BP 120/70 Blood Pressure Location Lt brachial Position Sitting Pulse 69 Intake Visit Reasons: 1yr fu Intake Note: 1 year follow-up with ekg Poker Dealer Required: No Allergies No Known Allergies Allergy (Verified 01/05/24 14:35) Medication List - Last Reconciled 07/21/25 by AUDREY Bliss cetirizine 10 mg PO QAM lisinopril 10 mg PO DAILY pantoprazole 40 mg PO DAILY peg 3350-electrolytes 236-22.74-6.74 -5.86 gram 240 mL PO ONCE rosuvastatin 20 mg PO BEDTIME HPI Comments Details: History of Present Illness The patient is a 74 year old male presenting for follow-up of hypertension, hyperlipidemia, and a dilated ascending aorta. A CT scan of the chest on 01/02/2023 showed the ascending aorta measuring 4.4 X 4.3 cm. A prior echocardiogram on 06/22/2023 had shown the ascending aorta at 4.6 cm, while his most recent echocardiogram on 06/17/2024 showed it at 4.2 cm. The echocardiogram from 06/17/2024 also demonstrated an EF of 60-65%, grade 1 diastolic dysfunction, and a mildly dilated left atrium. An exercise stress test on 06/22/2023 was performed for 5 minutes, during which he experienced mild to moderate shortness of breath without chest discomfort; findings included isolated PVCs and one short ventricular run with no EKG changes of ischemia, but the patient did not complete the nuclear rest images. He reports no current chest pain, pressure, palpitations, shortness of breath or lightheadedness. The patient's past medical history is significant for smoking, though he quit 25 years ago, and COPD/emphysema for which he is no longer using an inhaler. He also has a history of a large hiatal hernia which has been surgically repaired. He reports a past COVID-19 infection from which he has recovered and recently received flu and COVID-19 shots. His current cardiac medications include lisinopril and rosuvastatin, and he reports being adherent. He lives on the third floor and climbs stairs without difficulty. For exercise, he walks an average of 4,000-5,000 steps a day and feels very good while doing so. . Results - Labs (07/11/2025): Hematocrit 45.9, creatinine 0.93, AST 26 U/L, ALT 18 U/L, LDL 83 mg/dL. - EKG (current visit): Sinus rhythm with first-degree AV block and right bundle branch block, unchanged from prior EKG. - CT Chest (01/02/2023): Showed no coronary calcium and an ascending aorta of 4.4 x 4.3 cm. - Echocardiogram (06/17/2024): EF 60-65%, grade 1 diastolic dysfunction, mildly dilated left atrium, ascending aorta 4.2 cm. - Echocardiogram (06/22/2023): Showed ascending aorta 4.6 cm. - Exercise Stress Test (06/22/2023): Exercised for 5 minutes with mild to moderate shortness of breath and no chest discomfort. Findings included isolated PVCs, one short ventricular run, and no EKG changes of ischemia. The patient did not complete the nuclear rest images. [facility] Medical History Atherosclerotic cardiovascular disease HLD (hyperlipidemia) HTN (hypertension) COPD (chronic obstructive pulmonary disease) Aortic aneurysm Hiatal hernia Surgical History Hx of hernia repair Family History Father No problems noted. Mother No problems noted. Social History Alcohol intake: former Patient Tobacco Use Status: Current everyday Tobacco user Review of Systems Const All systems reviewed & are unremarkable except as noted in HPI and below Denies chills, Denies fatigue, Denies fever(s), Denies frequent falls, Denies weakness, Denies weight gain and Denies weight loss ENT Denies dizziness Card Denies chest pain, Denies leg edema, Denies lightheadedness, Denies palpitations, Denies dyspnea, Denies dyspnea on exertion, Denies orthopnea and Denies other (loss of consciousness) Resp Denies cough, Denies dyspnea and Denies dyspnea on exertion GI Denies hematochezia and Denies change in stool character Musc Denies abnormal gait, Denies muscle weakness, Denies numbness, Denies radiating pain into limb and Denies tingling Neuro Denies abnormal gait, Denies dizziness, Denies frequent falls, Denies numbness, Denies tingling and Denies weakness Endo Denies fatigue and Denies palpitations Physical Exam Vital Signs: BMI result Body Mass Index 24.9 Const General: cooperative, healthy appearing, comfortable and no acute distress Orientation/consciousness: patient oriented x3 Neck Neck: Yes normal visual inspection Resp Effort & Inspection: normal respiratory effort Auscultation: clear to auscultation bilaterally, no rales, no rhonchi and no wheezes Cardio Rate: regular rate Rhythm: regular rhythm Heart sounds: S1 normal heart sound present, S2 normal heart sound present, no gallops, no murmurs and no rubs Neuro General: patient oriented x3 Extrem General: Yes normal to inspection and No no pedal edema Psych Appearance: grossly normal Mental Status: mental status grossly normal Speech and movement: Normal speech and movement present Office Procedures EKG Details: Today, read by me, sinus rhythm with first degree avb, RBBB, rate 69, Qtc 471ms [id number], Complete Assessment & Plan Assessment & Plan (1) Ascending aortic aneurysm: Code(s): I71.21 - Aneurysm of the ascending aorta, without rupture Category: Medical Qualifiers: Presence of rupture: without rupture Qualified Code(s): I71.21 - Aneurysm of the ascending aorta, without rupture (2) HTN (hypertension): Code(s): I10 - Essential (primary) hypertension Category: Medical (3) HLD (hyperlipidemia): Code(s): E78.5 - Hyperlipidemia, unspecified Category: Medical Plan Plan 1. Dilated Ascending Aorta The patient has a history of a dilated ascending aorta with variable measurements on prior imaging, including 4.[address], 4.6 cm on a 2022 echo, and 4.2 cm on a 2023 echo. Due to this variability, a repeat study is warranted for accurate surveillance. The patient remains asymptomatic from a cardiac standpoint. An order will be placed for a new echocardiogram, and centralized scheduling will contact the patient to arrange the appointment. The patient will be contacted with the results, and he is scheduled for a follow-up in approximately one year. 2. Hypertension BP goal < 130/80. Blood pressure is well-controlled at 120/70 mmHg on his current regimen. He will continue his current dose of lisinopril. 3. Hyperlipidemia LDL goal < 100. His LDL is at goal at 83 mg/dL. He will continue his current dose of rosuvastatin. 4. First-Degree Av Block And Right Bundle Branch Block The patient's EKG shows stable first-degree AV block and right bundle branch block, unchanged from prior studies. He is asymptomatic, and no acute intervention is required. Discussion Notes I informed the patient that his blood pressure today was very good at 120/70 and that his EKG findings are stable and unchanged. We discussed the ongoing surveillance of his ascending aorta and noted the variability in aortal measurements from previous studies, including the most recent echocardiogram from May 2024 which measured it at 4.2 cm. I explained the need for another heart ultrasound (echocardiogram) to get a current and accurate assessment. I informed him that I am placing the order for the echocardiogram and that our centralized scheduling department will call him to set up the appointment. I advised him to continue all his current medications, and we will contact him with the results of the echo. A follow-up visit is planned for about one year. I provided return precautions, instructing him to let us know if he develops any new heart-related symptoms such as chest pain, changes in breathing, or rapid heartbeats. Patient Instructions - Continue taking all your medications as prescribed, including lisinopril for blood pressure and rosuvastatin for cholesterol. - We are ordering a new ultrasound of your heart, called an echocardiogram, to check on the size of your aorta. - Our scheduling office will call you to find a time for this test. - We will call you with the results after the test is done. - You should schedule a follow-up appointment to see us again in about one year. - Please contact us right away if you develop any new symptoms that might be related to your heart, such as chest pain, shortness of breath, or heart palpitations. Patient was informed and verbally consented to the use of an ambient scribe for clinic note documentation during this visit. Visit time spent on chart review, interview, assessment, orders, documentation. Orders: Orders CA echo transthoracic complete Today I71.21 - Aneurysm of the ascending aorta, without rupture Coding Level of Care Code Est Pt Level 4 (75527) Add On Problem Visit Only Diagnoses Aneurysm of ascending aorta without rupture I71.21 Presence of rupture: without rupture HTN (hypertension) I10 HLD (hyperlipidemia) E78.5 CPT Codes EKG - CPT: [id number], Complete ([id number]) Time Spent (min) 28
== END 2025-07-21 14:39 | disposition home or self-care (01) ==
LOC: HO.HCS 14:11
PROVIDERS: PCP Registered Nurse; Visit Provider Nurse Practitioner Family
DX: I71.21 Aneurysm of the ascending aorta, without rupture (principal); I10 Essential (primary) hypertension; E78.5 Hyperlipidemia, unspecified
CPT/HCPCS: 93010; 99214; G2211

== ENCOUNTER → 2025-07-21 14:11 | Outpatient (BNVA) | payer MEDICARE, MEDICAID, SELFPAY | PROVIDERS: PCP Registered Nurse; Visit Provider Nurse Practitioner Family | DX: I10 Essential (primary) hypertension (principal); I71.21 Aneurysm of the ascending aorta, without rupture; E78.5 Hyperlipidemia, unspecified; F17.210 Nicotine dependence, cigarettes, uncomplicated | CPT/HCPCS: 93005; 99212 ==